=== PATIENT | male | born 1980 | race Caucasian/White ===

== ENCOUNTER 2017-03-12 22:32 | Inpatient (IN) | payer OTHER ==
[~2017-03-12] VITALS: Ht 188 cm; Wt 83.9 kg
[2017-03-13] VITALS (18 sets, daily range): BP systolic 106–136; BP diastolic 56–81; PULSE 70–78; RESP 13–20; TEMP 98.1; Ht 188 cm; Wt 83.9 kg
[2017-03-13] MEDS ORDERED: SOD CHLORIDE 0.9% 1,000 ML IV STA ×2 (00:17→01:21)
[2017-03-13] MEDS ORDERED: morphine 4 MG/ML VIAL IV STA (00:17)
[2017-03-13] MEDS ORDERED: ONDANSETRON 4 MG INJ IV STA (00:17)
--- NOTE | 2017-03-13 00:57 | RADRPT ---
PROCEDURE: CT Abdomen and pelvis without contrast. CLINICAL INDICATION: Abdominal pain. TECHNIQUE: CT scan of the abdomen and pelvis was performed on a multi-detector high-resolution CT scanner. Contiguous axial images were obtained from the lung bases to the ischial tuberosities wit hout intravenous contrast. Coronal and sagittal reformatted images were also obtained. Images were reviewed on the PACS workstation. One or more of the following dose reduction techniques were used: - Automated exposure control. - Adjustment of the mA and/or kV according to patient size. - Use of iterative reconstruction technique. Exam CTD/vol = 10.49 mGy. Total exam DLP = 629.45 mGy-cm. COMPARISON: None. FINDINGS: Evaluation of the lung bases demonstrates no pleural or parenchymal disease. Abdomen: The liver is normal in size. There is no focal mass or dilatation of the biliary tree. T he gallbladder is not distended. The spleen, pancreas and bilateral adrenal glands are within haritha l limits. Bilateral kidneys are normal in size with no contour deforming mass identified. There is no radiopaque renal or ureteral calculus identified. There is no hydronephrosis or hydroureter. T here is no retroperitoneal adenopathy. The abdominal aorta is of normal caliber. There is intestinal malrotation with most of the small bowel within the mid to right abdomen and mos t of the colon within the mid to left abdomen. There is moderate retained stool within the colon. Th ere is no bowel obstruction or free air. A normal appendix is identified. There is no diverticulos is or diverticulitis. There is no ascites. Pelvis: The bladder is unremarkable. The prostate and seminal vesicles are within normal limits. There is no significant pelvic adenopathy or free fluid. Evaluation of the osseous structures demonstrates no suspicious lytic or blastic lesion. There are d efects of bilateral pars particulars of L5 with grade 1 anterolisthesis of L5 on S1 measuring 4 mm i n AP diameter. IMPRESSION: Intestinal malrotation. There is no bowel obstruction. Moderate retained stool within the colon. Bilateral pars defects of L5 with grade 1 anterolisthesis of L5 on S1. .David Daniel MD, MD Date Time Electronically viewed and signed by .David Daniel MD, MD on 03/13/2017 00:57 .T/
[2017-03-13] MEDS ORDERED: HYDROmorphONE 1 MG/ML SYG IV STA ×3 (01:21→04:18)
[2017-03-13 01:33] LABS: BASOPHIL # 0.1 10^3/ul (0.0-0.1); BASOPHILS % 0.6 % (0.0-2.0); EOSINOPHILS % 0.5 % (0.0-7.0); HEMATOCRIT 42.1 % (42.0-52.0); HEMOGLOBIN 14.2 g/dl (14.0-18.0); LYMPHOCYTES % 22.4 % (15.0-51.0); MEAN CORPUSCULAR HGB CONC 33.7 g/dl (32.0-37.0); MEAN CORPUSCULAR VOLUME 86.1 fl (82.0-101.0); MEAN PLATELET VOLUME 12.1 fl (7.4-10.4); MONOCYTE # 0.6 10^3/ul (0.3-0.9); MONOCYTES % 6.9 % (0.0-11.0); NEUTROPHIL # 6.1 10^3/ul (1.6-7.5); NEUTROPHILS % 69.4 % (39.0-77.0); PLATELET COUNT 240 10^3/UL (140-415); RED BLOOD COUNT 4.89 10^6/ul (4.70-6.10); RED CELL DISTRIBUTION WIDTH 12.6 % (11.5-14.5); WHITE BLOOD COUNT 8.8 10^3/ul (4.8-10.8)
[2017-03-13 01:49] LABS: INR 0.92; PROTIME 12.4 Sec (12.2-14.2)
[2017-03-13 01:52] LABS: ALBUMIN 4.8 g/dl (3.3-4.9); ALBUMIN/GLOBULIN RATIO 1.65; BILIRUBIN,INDIRECT 0.2 mg/dl (0-1.1); BILIRUBIN,TOTAL 0.2 mg/dl (0.2-1.3); CREATININE 1.03 mg/dl (0.61-1.24); POTASSIUM 3.7 mmol/L (3.5-5.1); TOTAL PROTEIN 7.7 g/dl (6.1-8.1)
[2017-03-13] MEDS ORDERED: VITA1CAP PO (02:15)
[2017-03-13] MEDS ORDERED: FINA1TAB16 PO (02:15)
[2017-03-13 02:28] LABS: ADD UMIC NO; UR ASCORBIC ACID NEGATIVE (NEGATIVE); UR BILIRUBIN (Dip) NEGATIVE (NEGATIVE); UR BLOOD (Dip) NEGATIVE (NEGATIVE); UR CLARITY CLEAR (CLEAR); UR COLOR YELLOW (YELLOW); UR GLUCOSE (Dip) NEGATIVE (NEGATIVE); UR KETONES (Dip) TRACE mg/dL (NEGATIVE); UR LEUKOCYTE ESTERASE (Dip) NEGATIVE Leu/ul (NEGATIVE); UR NITRITE (Dip) NEGATIVE (NEGATIVE); UR RBC 0 /HPF (0-5); UR SPECIFIC GRAVITY (Dip) 1.016 (1.003-1.030); UR TOTAL PROTEIN (Dip) NEGATIVE (NEGATIVE); UR UROBILINOGEN (Dip) NEGATIVE (NEGATIVE)
--- NOTE | 2017-03-13 02:49 | ERA ---
ER Documentation Chief Complaint Date/Time DATE: 03/13/17 TIME: 02:43 Chief Complaint mid abdominal pain noted, exacerbated by food ingestion. Feels anxious HPI Otherwise healthy 37-year-old man presents with mid to lower abdominal pain and cramping since this afternoon after eating vegetables and quinoa salad. Patient states he has had nausea but no vomiting or diarrhea, he states over the last couple weeks he has had intermittent blood per rectum but denies melena , no fevers or chills, no chest pain or shortness of breath. Patient denies recent antibiotic use, no recent travel, and no past surgical history. ROS All systems reviewed and are negative except as per history of present illness. Medications Home Meds Reported Medications Vitamin B Complex (Vitamin B Complex) 1 Each Capsule, 1 EACH PO, CAP 03/13/17 Finasteride* (Finasteride*) 1 Mg Tablet, 1 MG PO HS, TAB 03/13/17 Allergies Allergies: Coded Allergies: No Known Allergy (Unverified , 03/13/17) PMhx/Soc None FmHx Family History: No diabetes Physical Exam Vitals Vital Signs Date Time Temp Pulse Resp B/P Pulse Ox O2 Delivery O2 Flow Rate FiO2 03/12/17 22:47 97.5 95 22 122/76 100 Physical Exam GENERAL: Well-developed, well-nourished, well-hydrated, in no apparent distress , looks nontoxic in appearance HEENT: Moist mucous membranes, pink conjunctiva, no cervical spine tenderness or step-off deformities, no goiter, no jaundice or icterus, extraocular movements intact without pain. No submandibular induration, and no pharyngeal erythema NEURO: Alert and oriented 3, cranial nerves II through XII intact bilaterally, pupils equal round reactive to light, no focal deficits or facial asymmetry, sensation intact distally Strength 5/5 in upper and lower extremities bilaterally CARDIAC: Regular rate and rhythm, no murmurs rubs or gallops LUNGS: Clear bilaterally no wheezing crackles or stridor ABDOMEN: Rigid, tender to touch with voluntary guarding to the lower abdomen, no psoas sign, no obturator sign. SKIN: Warm and dry to touch, no abrasions, contusions, or hematomas, no lacerations, no ecchymosis, no target lesions, and without ulcers EXTREMITIES: No clubbing cyanosis or edema, calves are bilaterally symmetrical, no Homans sign, no popliteal cord sign. Distal pulses equal and bilateral PSYCH: Normal affect without agitation or irritability Result Diagram: 03/13/17 0045 03/13/17 0045 Results 24 hrs Laboratory Tests Test 03/13/17 00:45 03/13/17 02:06 White Blood Count 8.810^3/ul Red Blood Count 4.8910^6/ul Hemoglobin 14.2g/dl Hematocrit 42.1% Mean Corpuscular Volume 86.1fl Mean Corpuscular Hemoglobin 29.0pg Mean Corpuscular Hemoglobin Concent 33.7g/dl Red Cell Distribution Width 12.6% Platelet Count 72017^3/UL Mean Platelet Volume 12.1fl Neutrophils % 69.4% Lymphocytes % 22.4% Monocytes % 6.9% Eosinophils % 0.5% Basophils % 0.6% Nucleated Red Blood Cells % 0.0/100WBC Neutrophils # 6.110^3/ul Lymphocytes # 2.010^3/ul Monocytes # 0.610^3/ul Eosinophils # 0.010^3/ul Basophils # 0.110^3/ul Nucleated Red Blood Cells # 0.010^3/ul Prothrombin Time 12.4Sec Prothrombin Time Ratio 1.0 INR International Normalized Ratio 0.92 Sodium Level 142mmol/L Potassium Level 3.7mmol/L Chloride Level 101mmol/L Carbon Dioxide Level 22mmol/L Anion Gap 23 Blood Urea Nitrogen 18mg/dl Creatinine 1.03mg/dl Glucose Level 127mg/dl Calcium Level 10.0mg/dl Total Bilirubin 0.2mg/dl Direct Bilirubin 0.00mg/dl Indirect Bilirubin 0.2mg/dl Aspartate Amino Transf (AST/SGOT) 31IU/L Alanine Aminotransferase (ALT/SGPT) 34IU/L Alkaline Phosphatase 58IU/L Total Protein 7.7g/dl Albumin 4.8g/dl Globulin 2.90g/dl Albumin/Globulin Ratio 1.65 Lipase 239U/L Urine Color YELLOW Urine Clarity CLEAR Urine pH 9.0 Urine Specific [place] 1.016 Urine Ketones TRACEmg/dL Urine Nitrite NEGATIVEmg/dL Urine Bilirubin NEGATIVEmg/dL Urine Urobilinogen NEGATIVEmg/dL Urine Leukocyte Esterase NEGATIVELeu/ul Urine Microscopic RBC 0/HPF Urine Microscopic WBC 0/HPF Urine Hemoglobin NEGATIVEmg/dL Urine Glucose NEGATIVEmg/dL Urine Total Protein NEGATIVEmg/dl Current Medications Medications (Trade) Dose Ordered Sig/Ariel Route PRN Reason Start Time Stop Time Status Last Admin Dose Admin Sodium Chloride (NS) 1,000 ml @ 1,000 mls/hr Q1H STAT IV 03/13/17 00:17 03/13/17 01:16 DC 03/13/17 00:24 Morphine Sulfate (morphine) 4 mg ONCE STAT IV 03/13/17 00:17 03/13/17 00:19 DC 03/13/17 00:27 Ondansetron HCl 4 mg 4 mg ONCE STAT IV 03/13/17 00:17 03/13/17 00:19 DC 03/13/17 00:27 Sodium Chloride (NS) 1,000 ml @ 1,000 mls/hr Q1H STAT IV 03/13/17 01:21 03/13/17 02:20 DC 03/13/17 01:27 Hydromorphone HCl (Dilaudid) 1 mg ONCE STAT IV 03/13/17 01:21 03/13/17 01:22 DC 03/13/17 01:27 Hydromorphone HCl (Dilaudid) 1 mg ONCE STAT IV 03/13/17 02:31 03/13/17 02:32 DC 03/13/17 02:40 Procedures/MDM IV line was established patient was placed on life support technician rhythm strip revealed a sinus rhythm at about 90 bpm with upright P and T waves. I administered 1 L normal saline intravenously, morphine 4 mg IV, and Zofran 4 mg IV. For continued discomfort he was given multiple doses of hydromorphone [address] scan of the abdomen and pelvis revealed acute small bowel malrotation, severe without evidence of acute appendicitis or obvious bowel obstruction. Please refer to radiologist dictation for full report. Emergent surgical consultation was obtained with the on-call surgeon, we discussed CT scan findings, patient's abdominal exam and HPI. He recommended admission and close observation, patient n.p.o. after midnight and possible operative intervention in a.m. CBC and electrolytes were normal, liver function tests were normal, coagulation profile was normal. Urinalysis was negative for infection. Patient will be admitted to [facility] for continued medical management and possible surgical intervention. Departure Diagnosis: Primary Impression: Intestinal malrotation Additional Impression: Intractable abdominal pain Condition: CLAIRE Ying MD Mar 13, 2017 02:49
[2017-03-13] MEDS ORDERED: HYDROmorphONE 1 MG/ML SYG IV ONE (04:08)
[2017-03-13] MEDS ORDERED: IOHEXOL 300MG/ML 150 ML BTL ONE (04:25)
[2017-03-13] MEDS ORDERED: SOD CHLORIDE 0.9% 100 ML ONE (04:25)
--- NOTE | 2017-03-13 05:01 | RADRPT ---
PROCEDURE: CT angiogram of the abdomen and pelvis with bilateral lower extremity runoffs with cont rast. CLINICAL INDICATION: Peripheral vascular disease, right lower extremity pain and edema. TECHNIQUE: CT angiogram of the abdomen and pelvis with bilateral lower extremity runoff was perfor med using a multidetector CT scanner. Contiguous axial images were obtained from the lower chest to the feet during the dynamic injection of 120 cc of Omnipaque-300 intravenous contrast. Coronal and sagittal reformatted images were obtained. 3-D reformations were also obtained. Images were reviewe d on a PACS workstation. One or more of the following dose reduction techniques were used: - Automated exposure control. - Adjustment of the mA and/or kV according to patient size. - Use of iterative reconstruction technique. Exan CTD/vol = 7.38 mGy. Total exam DLP = 993.10 mGy-cm. COMPARISON: None. FINDINGS: Evaluation of the lung bases demonstrates mild bibasilar atelectasis. Abdomen: The liver is normal in size. There is no focal mass or dilatation of the biliary tree. T he gallbladder is not distended. The spleen, pancreas and bilateral adrenal glands are within haritha l limits. Bilateral kidneys are normal in size with symmetric enhancement. There is no focal mass, hydronephrosis or hydroureter. There is no retroperitoneal adenopathy. There is intestinal malrotation with most of the small bowel within the mid to right abdomen and mos t of the colon within the mid to left abdomen. There is moderate retained stool within the colon. Th ere is no bowel obstruction or free air. A normal appendix is identified. There is no diverticulosis or diverticulitis. There is no ascites. Pelvis: The bladder is unremarkable. The prostate and seminal vesicles are within normal limits. There is no significant pelvic adenopathy or free fluid. Evaluation of the osseous structures demonstrates no suspicious lytic or blastic lesion. There are d efects of bilateral pars particulars of L5 with grade 1 anterolisthesis of L5 on S1 measuring 4 mm i n AP diameter. The abdominal aorta is of normal course and caliber. The celiac and superior mesenteric arteries ar e within normal limits. 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 The left renal artery is within normal limits. The inferior mesenteric artery is patent. Bilateral common iliacs, external and int ernal iliac arteries are of normal course and caliber. Bilateral common femoral, superficial femora l and popliteal arteries are normal course and caliber. There are normal three-vessel runoffs to th e calves. There is no significant stenosis or occlusion. There is no evidence of aneurysm or disse ction. IMPRESSION: Unremarkable CT angiogram of the abdomen and pelvis with bilateral lower extremity runoffs. Intestinal malrotation. There is no bowel obstruction. Moderate retained stool within the colon. Bilateral pars defects of L5 with grade 1 anterolisthesis of L5 on S1. .David Daniel MD, Date Time Electronically viewed and signed by .David Daniel MD, on 03/13/2017 05:01 .T/
[2017-03-13] MEDS ORDERED: HYDROmorphONE 1 MG/ML SYG IV PRN ×2 (05:30→19:30)
[2017-03-13] MEDS: HYDROmorphONE 2 MG/ML SYG IV PRN ×5 (05:41→14:37)
[2017-03-13] MEDS: ONDANSETRON 4 MG INJ IV PRN ×2 (05:41→10:01)
[2017-03-13] MEDS: D5W-0.45 NACL + KCL 20 MEQ 1,000 ML IV SCH ×3 (05:42→21:05)
[2017-03-13] MEDS ORDERED: PANTOPRAZOLE 40 MG INJ IV SCH (06:00)
[2017-03-13 06:40] LABS: BASOPHILS % 0.4 % (0.0-2.0); EOSINOPHILS % 0.1 % (0.0-7.0); HEMATOCRIT 38.6 % (42.0-52.0); HEMOGLOBIN 12.9 g/dl (14.0-18.0); LYMPHOCYTES # 0.9 10^3/ul (0.8-2.9); LYMPHOCYTES % 9.2 % (15.0-51.0); MEAN CORPUSCULAR HEMOGLOBIN 30.2 pg (29.0-33.0); MEAN CORPUSCULAR HGB CONC 33.4 g/dl (32.0-37.0); MEAN CORPUSCULAR VOLUME 90.4 fl (82.0-101.0); MEAN PLATELET VOLUME 11.9 fl (7.4-10.4); MONOCYTE # 0.4 10^3/ul (0.3-0.9); MONOCYTES % 4.7 % (0.0-11.0); NEUTROPHILS % 85.2 % (39.0-77.0); PLATELET COUNT 190 10^3/UL (140-415); RED BLOOD COUNT 4.27 10^6/ul (4.70-6.10); RED CELL DISTRIBUTION WIDTH 12.5 % (11.5-14.5); WHITE BLOOD COUNT 9.4 10^3/ul (4.8-10.8)
[2017-03-13 07:02] LABS: ALBUMIN 3.9 g/dl (3.3-4.9); ALBUMIN/GLOBULIN RATIO 1.77; BILIRUBIN,INDIRECT 0.2 mg/dl (0-1.1); BILIRUBIN,TOTAL 0.2 mg/dl (0.2-1.3); CALCIUM 8.5 mg/dl (8.4-10.2); CREATININE 0.89 mg/dl (0.61-1.24); POTASSIUM 4.6 mmol/L (3.5-5.1); TOTAL PROTEIN 6.1 g/dl (6.1-8.1)
--- NOTE | 2017-03-13 12:28 | CONS ---
Date/Time of Note Date/Time of Note DATE: 03/13/17 TIME: 12: Assessment/Plan Assessment/Plan Additional Assessment/Plan [facility] INPATIENT CONSULTATION NOTE DATE OF SERVICE: 03/13/2017 PLACE OF SERVICE: [facility], second floor [place] ASSESSMENT AND PLAN: A very-pleasant otherwise healthy 37-year-old gentleman presenting with possible malrotation of his bowel including his colon. His degree of pain and presence of guarding and peritoneal signs mandate surgical exploration despite normal-appearing labs. No evidence of ischemic issues related to clotting and major vessels with CT angiography. No obvious role for gastroenterology to try and reverse this process with endoscopy (I discussed this with 1 of our GI colleagues). I explained my recommendations to the patient and his family that included his partner and another friend, discussed the operation in detail including risks, benefits, and alternatives and answered all of their questions. After careful consideration of all their options, the patient and family appear to understand and agreed to proceed with surgery. With above assessment, I've recommended the followin. Keep n.p.o. 2. Treat symptoms 3. [place] to the operating room for above Thank you very much for having me involved in the care of this very pleasant patient and wonderful family. If you have any questions, please feel free to contact me at [phone]. Nature of presenting problem: High severity Please note that, given the multiple number of diagnoses or management options, the moderate amount and/or complexity of data needed to be reviewed, and I risk of complications and/or morbidity or mortality, this qualifies as high complexity type of decision-making. Disclaimer: Inadvertent spelling and grammatical errors are likely due to EHR/ dictation software use and do not reflect on the quality of delivered patient care. Also, please note that the electronic time recorded on this node does not necessarily reflect the actual time of the visit. Updated clinical summary: A very-pleasant otherwise fairly healthy 37-year-old gentleman presenting with possible malrotation of his bowel including his colon. Comorbidities: 1. Bilateral pars defects of L5 with grade 1 anterolisthesis of L5 on S1 CONSULTATION REQUESTED BY: Nolberto Raymundo MD HISTORY OF PRESENT ILLNESS: The patient is a very pleasant 37-year-old otherwise healthy gentleman presenting with abdominal pain of a few hours duration which appears to be constant in nature, located in a diffuse fashion in the lower pelvic region, exacerbated by movement and not alleviated by any factors other than pain medications. 10 out of 10 in severity without radiation. Associated nausea and one episode of vomiting which was nonbloody. No issues with diarrhea or constipation. Has had on and off GI problems in the past but none this severe. No prior operations. No other complaints. Unknown whether there was any issues during or his childhood (none reported by patient). ALLERGIES: NO KNOWN DRUG ALLERGIES MEDICATIONS Documented in the electronic records and reviewed by me. Please see the electronic records for details, as well as details for inpatient medications which were also reviewed by me. Patient is on finasteride and vitamin B complex. SOCIAL HISTORY: The patient lives with his partner. Patient is an actor.-Tob;- ETOH;-IVDU FAMILY HISTORY: There are no significant medical, surgical or oncologic issues in the family as reported by the patient or reflected in the chart. REVIEW OF SYSTEMS: Other than mentioned above, there were no other pertinent positives or pertinent negatives in an otherwise complete 14 point review of systems. PHYSICAL EXAMINATION GENERAL: The patient appears to be a very pleasant gentleman of non- descent lying in bed, appearing stated age, and otherwise in no acute distress. BMI: 23.7 VITAL SIGNS: AVSS (please also see auto important data if available as well as the electronic records) HEENT: Normocephalic and atraumatic. Extraocular muscles and hearing are grossly intact bilaterally and symmetrically. Sclerae are nonicteric. Oral cavity is clear; oral mucosa appear to be pink and moist. Dentition: fair. NECK: Supple. There is no lymphadenopathy or JVD. There is no submental, submandibular or supraclavicular lymphadenopathy. CHEST: Rises symmetrically with each breath; patient is breathing comfortably. There are no audible wheezes, rales or rhonchi on the gross exam. HEART: Pulse is regular and palpable on the right wrist. Capillary refill is normal. Carotid pulses are palpable bilaterally and symmetrically in the neck. EXTREMITIES: Lower extremities contain no pitting edema around the ankles bilaterally and symmetrically. ABDOMEN: Abdomen is soft, moderate to significantly tender and nondistended. No evidence of ascites, organomegaly, caput medusae, engorged subcutaneous veins , or other abnormalities. There are mild to moderate guarding with mild peritoneal signs. SKIN: Appears to be pink and feels warm to touch. NEUROLOGIC: Awake, alert, and follows commands appropriately. LABORATORY DATA: Essentially all normal (please see electronic medical record system) IMAGING: See electronic chart. Please note that I've personally reviewed all pertinent available images and I agree in general with their overall reported findings. Abdominal and pelvic CT [facility] 03/13/2017 IMPRESSION: Unremarkable CT angiogram of the abdomen and pelvis with bilateral lower extremity runoffs. Intestinal malrotation. There is no bowel obstruction. Moderate retained stool within the colon. Bilateral pars defects of L5 with grade 1 anterolisthesis of L5 on S1. Consultation Date/Type/Reason Admit Date/Time Mar 13, 2017 at 01:50 Social History Smoking Status: Never smoker Exam/Review of Systems Vital Signs Vitals Vital Signs Date Time Temp Pulse Resp B/P Pulse Ox O2 Delivery O2 Flow Rate FiO2 03/13/17 08:00 97.3 83 17 129/81 100 03/13/17 04:30 Room Air Intake and Output 03/12/17 03/12/17 03/13/17 15:00 23:00 07:00 Intake Total 0 ml Balance 0 ml Results Result Diagram: 03/13/17 0600 03/13/17 0600 Results 24 hrs Laboratory Tests Test 03/13/17 00:45 03/13/17 02:06 03/13/17 06:00 White Blood Count 8.8 9.4 Red Blood Count 4.89 4.27 L Hemoglobin 14.2 12.9 L Hematocrit 42.1 38.6 L Mean Corpuscular Volume 86.1 90.4 Mean Corpuscular Hemoglobin 29.0 30.2 Mean Corpuscular Hemoglobin Concent 33.7 33.4 Red Cell Distribution Width 12.6 12.5 Platelet Count 240 190 # Mean Platelet Volume 12.1 H 11.9 H Neutrophils % 69.4 85.2 H Lymphocytes % 22.4 9.2 L Monocytes % 6.9 4.7 Eosinophils % 0.5 0.1 Basophils % 0.6 0.4 Nucleated Red Blood Cells % 0.0 0.0 Neutrophils # 6.1 8.0 H Lymphocytes # 2.0 0.9 Monocytes # 0.6 0.4 Eosinophils # 0.0 0.0 Basophils # 0.1 0.0 Nucleated Red Blood Cells # 0.0 0.0 Prothrombin Time 12.4 Prothrombin Time Ratio 1.0 INR International Normalized Ratio 0.92 Sodium Level 142 142 Potassium Level 3.7 4.6 Chloride Level 101 106 Carbon Dioxide Level 22 23 Anion Gap 23 H 18 H Blood Urea Nitrogen 18 14 Creatinine 1.03 0.89 Glucose Level 127 114 Calcium Level 10.0 8.5 Total Bilirubin 0.2 0.2 Direct Bilirubin 0.00 0.00 Indirect Bilirubin 0.2 0.2 Aspartate Amino Transf (AST/SGOT) 31 26 Alanine Aminotransferase (ALT/SGPT) 34 30 Alkaline Phosphatase 58 42 Total Protein 7.7 6.1 # Albumin 4.8 3.9 Globulin 2.90 2.20 Albumin/Globulin Ratio 1.65 1.77 Lipase 239 Urine Color YELLOW Urine Clarity CLEAR Urine pH 9.0 Urine Specific [place] 1.016 Urine Ketones TRACE A Urine Nitrite NEGATIVE Urine Bilirubin NEGATIVE Urine Urobilinogen NEGATIVE Urine Leukocyte Esterase NEGATIVE Urine Microscopic RBC 0 Urine Microscopic WBC 0 Urine Hemoglobin NEGATIVE Urine Glucose NEGATIVE Urine Total Protein NEGATIVE Lactic Acid Level 0.8 Medications Medications Current Medications Hydromorphone HCl (Dilaudid) 1 mg Q2H PRN IV PAIN; Start 03/13/17 at 05:30 Hydromorphone HCl (Dilaudid) 2 mg Q2H PRN IV PAIN Last administered on 12:20; Admin Dose 2 MG; Start 03/13/17 at 05:30 Ondansetron HCl (Zofran Inj) 4 mg Q4H PRN IV NAUSEA AND/OR VOMITING Last administered on 03/13/17 10:01; Admin Dose 4 MG; Start 03/13/17 at 05:30 Pantoprazole 40 mg 40 mg DAILY@06 IV Last administered on 03/13/17 05:41; Admin Dose 40 MG; Start 03/13/17 at 06:00 Potassium Chloride/Dextrose/ Sod Cl (D5-1/2ns + KCl 20 Meq) 1,000 ml @ 100 mls/ hr Q10H IV Last administered on 03/13/17 05:42; Admin Dose 100 MLS/HR; Start 03/13/17 at 05:30 AIDEN MATA M.D. Mar 13, 2017 12:28
--- NOTE | 2017-03-13 13:19 | HP ---
Date/Time of Note Date/Time of Note DATE: 03/13/17 TIME: 13:16 Assessment/Plan VTE Prophylaxis VTE Prophylaxis Intervention: other Lines/Catheters IV Catheter Type (from Nrs): Peripheral IV Assessment/Plan Chief Complaint/Hosp Course 1) colonic malrotation - pain medication - to have surgical repair Problems: HPI/ROS Admit Date/Time Admit Date/Time Mar 13, 2017 at 01:50 Hx of Present Illness Patient without significant medical history comes in with worsening episodes of abdominal pain. Previously had incidences that lasted 1 day but now the problem is progressively worse and longer lasting. CT shows evidence of colon malrotation. Patient is admitted for pain control and probable surgery for correction. PMH/Family/Social Past Medical History Medical History: no pertinent history Past Surgical History Past Surgical Hx: no surgical history Social History Alcohol Use: occasionally Smoking Status: Never smoker Exam/Review of Systems Vital Signs Vitals Vital Signs Date Time Temp Pulse Resp B/P Pulse Ox O2 Delivery O2 Flow Rate FiO2 03/13/17 08:00 97.3 83 17 129/81 100 03/13/17 04:30 Room Air Intake and Output 03/12/17 03/12/17 03/13/17 15:00 23:00 07:00 Intake Total 0 ml Balance 0 ml Exam Constitutional: well developed Head: atraumatic, normocephalic Neck: supple Respiratory: clear to auscultation Cardiovascular: regular rate and rhythm Gastrointestinal: soft, tender Extremities: normal pulses Labs Result Diagram: 03/13/17 0600 03/13/17 0600 Medications Medications Current Medications Hydromorphone HCl (Dilaudid) 1 mg Q2H PRN IV PAIN; Start 03/13/17 at 05:30 Hydromorphone HCl (Dilaudid) 2 mg Q2H PRN IV PAIN Last administered on 12:20; Admin Dose 2 MG; Start 03/13/17 at 05:30 Ondansetron HCl (Zofran Inj) 4 mg Q4H PRN IV NAUSEA AND/OR VOMITING Last administered on 03/13/17 10:01; Admin Dose 4 MG; Start 03/13/17 at 05:30 Pantoprazole 40 mg 40 mg DAILY@06 IV Last administered on 03/13/17 05:41; Admin Dose 40 MG; Start 03/13/17 at 06:00 Potassium Chloride/Dextrose/ Sod Cl (D5-1/2ns + KCl 20 Meq) 1,000 ml @ 100 mls/ hr Q10H IV Last administered on 03/13/17t 05:42; Admin Dose 100 MLS/HR; Start 03/13/17 at 05:30 CANDIE PARDO Mar 13, 2017 13:19
[2017-03-13] MEDS ORDERED: BUPIVACAINE 0.25%/EPI (SDV) 30 ML INJ ONE (15:40)
[2017-03-13] MEDS ORDERED: SUCCINYLCHOLINE CHLORIDE 100 MG/5 ML SYG IV ONE (15:42)
[2017-03-13] MEDS ORDERED: LIDOCAINE 2% (SDV) 5 ML INJ ONE (15:42)
[2017-03-13] MEDS ORDERED: PROPOFOL 20 ML ONE (15:42)
[2017-03-13] MEDS ORDERED: MIDAZOLAM 1 MG/ML 2 ML INJ ONE (15:43)
[2017-03-13] MEDS ORDERED: FENTAnyl 50 MCG/ML VIAL ONE (15:43)
[2017-03-13] MEDS ORDERED: OXYCODONE/ACETAMINOPHEN (5/325) TAB PO PRN ×2 (16:00)
[2017-03-13] MEDS ORDERED: MEPERIDINE 25 MG INJ IV PRN (16:00)
[2017-03-13] MEDS ORDERED: HYDROmorphONE (0.2 MG/ML) 10ML SYG IV PRN ×2 (16:00)
[2017-03-13] MEDS ORDERED: PROCHLORPERAZINE 10 MG INJ IV PRN (16:00)
[2017-03-13] MEDS ORDERED: DIPHENHYDRAMINE 50 MG INJ IV PRN (16:00)
[2017-03-13] MEDS ORDERED: FENTAnyl 50 MCG/ML VIAL IV PRN (16:00)
[2017-03-13] MEDS ORDERED: ONDANSETRON 4 MG INJ IV PRN (16:00)
[2017-03-13] MEDS ORDERED: DEXAMETHASONE 4 MG/ML 1 ML INJ ONE (16:16)
[2017-03-13] MEDS ORDERED: ONDANSETRON 4 MG INJ ONE (16:16)
[2017-03-13] MEDS ORDERED: ROCURONIUM 50 MG INJ ONE (16:16)
[2017-03-13] MEDS ORDERED: CEFAZOLIN 1 GM INJ ONE (16:16)
[2017-03-13] MEDS ORDERED: ACETAMINOPHEN 1000MG/100ML IV 100 ML ONE (18:23)
[2017-03-13] MEDS ORDERED: KETOROLAC 30 MG INJ ONE (18:24)
[2017-03-13] MEDS ORDERED: SUGAMMADEX SODIUM 200 MG/2 ML VIAL IV ONE (19:00)
--- NOTE | 2017-03-13 19:13 | OPR ---
Date/Time of Note Date/Time of Note DATE: 03/13/17 TIME: 18:57 Operative Report Free Text/Dictation 37 yo M presenting with a distal bowel obstruction and a CT a/p consistent with an intestinal rotation anomaly. I was asked for an intraoperative consult by Dr. Tejada. 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 Operation Performed Laparoscopic Mesa's procedure (Please see Dr. Tejada's operative report for portion of his operation.) Surgeon: MC SAWYER MD Anesthesia: general Anesthesiologist: RACIEL DIA MD Estimated Blood Loss: minimal Specimens Appendix Complications: None Pt Condition Post Procedure: stable Indications 37 yo M with a lifelong history of abdominal pain and intermittent episodes of vomiting. Who presented with severe abdominal pain that was evaluated by Dr. Tejada who order a CT a/p that showed fecalized small bowel and dilated colon in the left lower quadrants consistent with a bowel obstruction and intestinal rotational anomaly. Dr. Tejada took him to the operating room where I was consulted as a cosurgeon to perform a laparoscopic Mesa's procedure. Operative\Procedure Findings Dr. del Tejada asked for intraoperative consult. Dr. Tejada had to gain access to the abdominal cavity and he was a doing a diagnostic laparoscopy. During the case and we began to explore the abdomen and quickly noticed that his duodenum did not cross midline and had a evidence of intestinal rotational anomaly. We ran the small bowel and noted that the distal small bowel to the terminal ileum had was full of stool and the cecum itself was very dilated all the way up to the descending colon that made a twist causing a distal obstruction. We started with kocherization the duodenum laparoscopically Dr. Tejada will dictate this portion of the procedure. I assisted and taking the Darius's band from the ascending colon towards the mesentery where the obstruction was localized. I used the LigaSure to take down the Darius's bands and perform a full mobilization of the right colon and untwisted the portion that was causing the obstruction. We then proceeded and perform a laparoscopic appendectomy using the LigaSure to take the mesoappendix all the way onto the base of the appendix and taking a endoscopic stapler 45 load across the base of the appendix. The appendix was passed out as a specimen. We then ran the small bowel starting from the duodenum keeping the duodenum nice and straight and moving the small bowel towards the right side of the abdomen watching the mesentery to make sure that it was broad. There were Darius's bands in the duodenum and jejunum junction that were taken down as well. The colon was then placed on the left side of the abdomen making sure that the mesentery was broad. At this point I scrubbed out and Dr. Garfield Dempsey will dictate the portion of the procedure to completion. MC SAWYER MD Mar 13, 2017 19:12
[2017-03-13] MEDS ORDERED: DOCUSATE SODIUM 100 MG CAP PO PRN (19:30)
[2017-03-13] MEDS ORDERED: HYDROCODONE/APAP (5/325) TAB PO PRN ×2 (19:30)
[2017-03-13] MEDS ORDERED: NA PHOSPHATE/BIPHOS 133 ML ENEMA PR PRN (19:30)
[2017-03-13] MEDS ORDERED: BISACODYL 10 MG SUPP PR PRN (19:30)
[2017-03-13] MEDS ORDERED: oxyCODONE 5 MG TAB PO PRN ×2 (20:00)
--- NOTE | 2017-03-13 21:44 | OPR ---
Date/Time of Note Date/Time of Note DATE: 03/13/17 TIME: 21:42 Operative Report Procedure Date: Mar 13, 2017 Surgeon: TACO SAWYER MD Anesthesia: general Anesthesiologist: RACIEL SANCHEZ MD Estimated Blood Loss: minimal Complications: None Pt Condition Post Procedure: stable Operative\Procedure Findings [facility] INPATIENT OPERATIVE NOTE PLACE OF SERVICE: [facility] DATE OF SURGERY: 03/13/2017 PREOPERATIVE DIAGNOSIS: 1. 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 Bilateral pars defects of L5 with grade 1 anterolisthesis of L5 on S1 POSTOPERATIVE DIAGNOSIS: 1. Malrotation with fecalization of small intestine (terminal ileum) 2. Bilateral pars defects of L5 with grade 1 anterolisthesis of L5 on S1 OPERATION: Laparoscopic exploration with kocherization of duodenum as part of Darius's procedure (please see Dr. Sawyer's operative report for his portion of the operation) SURGEON: Julio Mata M.D. CO-SURGEON: Taco Sawyer M.D. PETROLEUM ENGINEERING TEACHER: None Please note that Dr. Sawyer was present for the entire duration of the operation and was instrumental in assisting with the most critical portions of my portion of the operation and in performance of his portion of the operation. ANESTHESIA: General endotracheal tube anesthesia ANESTHESIOLOGIST: Fatoumata Sanchez M.D. BRIEF SUMMARY: An otherwise uncomplicated but somewhat challenging laparoscopic Pyatt's procedure was performed with findings of malrotation. Updated clinical summary: A very-pleasant otherwise fairly healthy 37-year-old gentleman presenting with possible malrotation of his bowel including his colon. Comorbidities: 1. Bilateral pars defects of L5 with grade 1 anterolisthesis of L5 on S1 BRIEF HISTORY: The patient is a very-pleasant otherwise healthy 37-year-old gentleman presenting with possible malrotation of his bowel including his colon. His degree of pain and presence of guarding and peritoneal signs mandate surgical exploration despite normal-appearing labs. No evidence of ischemic issues related to clotting and major vessels with CT angiography. No obvious role for gastroenterology to try and reverse this process with endoscopy (I discussed this with 1 of our GI colleagues). I explained my recommendations to the patient and his family that included his partner and another friend, discussed the operation in detail including risks, benefits, and alternatives and answered all of their questions. After careful consideration of all their options, the patient and family appear to understand and agreed to proceed with surgery. For a detailed report of my consultation with patient and family, please refer to my separate consultation note. STATEMENT OF THE INFORMED CONSENT: The patient and family appeared to understand the risks of the operation to include, but not be limited to risk of postoperative pain and scar tissue, possible infection or bleeding requiring other interventions such as opening the wound, placement of drainage catheters, or other operative interventions; possible injury to surrounding to structures including bowel, bladder, bile duct, or blood vessels, or solid organs such as liver, kidney, or pancreas requiring other interventions or procedures; possible leakage of bowel from anastomotic sites or suture lines causing significant increase in morbidity and mortality and requiring multiple interventions including but not limited to, placement of drainage catheters, imaging studies, as well as operative interventions; possible other source of sepsis such as urinary tract infections or pneumonias, or other sources of potentially life threatening problems such as deep venous thrombus formation causing pulmonary embolism, myocardial arrhythmias and infarctions, and even . After careful consideration of all their options, the patient and family appeared to understand and wished to proceed with surgery. DESCRIPTION OF PROCEDURE: After obtaining informed consent, the patient was brought into the operating room and was placed in a normal supine position, where successful general endotracheal tube anesthesia was performed. Intravenous access was already in place and intravenous antimicrobials had been appropriately chosen and dosed prior to the operation. The patient's abdominal skin was prepped and draped from the nipple line down to the level of the upper thighs in the usual sterile fashion. We then called a surgical time-out where the patient's identification, date of , nature of the operation, allergies , presence of intravenous antimicrobials, presence of needed equipment, and any other concerns were reviewed and agreed upon by all members of the operating room team. We then started the operation by placing a 5 mm skin incision in the left lower quadrant and then introduced a 5 mm [employer] trocar into the peritoneal space, visualizing all the layers of the abdominal wall as we entered. Note that there was no indication of any injury to underlying structures with our entry into the peritoneal space. There was clear ascitic type fluid in the trocar but no blood or fecal contents. We insufflated the abdominal cavity to a maximum pressure of 15 mmHg and again inspected the area of insertion and ensured no obvious injury to underlying structures prior to inspecting the abdominal cavity and showing no obvious pus, bowel contents, or other abnormal features. The small bowel appeared to be in the right upper quadrant and the colon appeared to be in the left lower quadrant consistent with malrotation. We therefore injected the future sites of our other trocars with 0.25% Marcaine with epinephrine and placed a 5 mm [employer] trocar into the midline suprapubic area, taking care not to injure the bladder. We also placed a 12 mm trocar in the umbilical midline area, all under direct visualization. We also placed a 5 mm trocar in the right upper quadrant in similar fashion. With our instruments in place, we had excellent visualization and access to the right lower quadrant. Please note that at this point, Dr. Sawyer was in the room at my request and scrubbed into the operation. For detailed report of the operation, please refer to his separate dictated note. My portion of the operation was mainly to assist him in the Pyatt's procedure but also to perform the kocherization of the duodenum which he assisted me for. This was due to the fact that the patient was an adult and I was his primary surgeon as well as use of my hepatobiliary skills in this operation. I certainly appreciate Dr. Sawyer's expertise in malrotation procedures that he frequently performs on 's in newborns. We identified the stomach and carefully followed the course into the duodenum. I was then able to perform complete kocherization of the duodenum with excellent assistance from Dr. Sawyer. I then proceeded to assist through the rest of the case with Dr. Sawyer as outlined is separate operative note. At the end of the operation, Dr. Sawyer scrubbed out and I closed as follows. We ensured adequate hemostasis and bile stasis, removed all our equipment including the pneumoperitoneum from the abdominal cavity prior to closing the infraumbilical fascia with 1 [id number] 0 Vicryl suture on a UR-6 needle, washing the wounds with copious amounts of normal saline, injecting the initial insertion point of the trocar with 0.25% Marcaine with epinephrine, and then closing the skin using interrupted 4-0 Monocryl sutures. Light dressing was then applied. At the end of the operation, both the sponge count and needle count were reportedly correct x2. The patient tolerated the procedure without any reported complications. ESTIMATED BLOOD LOSS: Less than 10 mL. BLOOD OR BLOOD PRODUCT TRANSFUSIONS: None to my knowledge. SPECIMENS: 1. Appendix COMPLICATIONS: None. DISPOSITION: Recovery area. Disclaimer: Inadvertent spelling and grammatical errors are likely due to EHR/ dictation software use and do not reflect on the quality of delivered patient care. JULIO MATA M.D. Mar 13, 2017 21:44
[2017-03-14] MEDS: ONDANSETRON 4 MG INJ IV PRN ×3 (02:29→14:00)
[2017-03-14] MEDS: HYDROmorphONE 1 MG/ML SYG IV PRN ×7 (02:29→21:45)
[2017-03-14 02:49] VITALS: BP 116/64; RESP 16
[2017-03-14] MEDS: D5W-0.45 NACL + KCL 20 MEQ 1,000 ML IV SCH ×2 (06:40→17:00)
[2017-03-14 08:00] VITALS: BP 123/60; RESP 18
[2017-03-14] MEDS: ENOXAPARIN 40 MG/0.4 ML SYG SC SCH (08:22)
[2017-03-14] MEDS: FAMOTIDINE 20 MG INJ IV SCH (08:22)
[2017-03-14 14:00] VITALS: BP 120/75; RESP 20
--- NOTE | 2017-03-14 14:05 | PN ---
Date/Time of Note Date/Time of Note DATE: 03/14/17 TIME: 14:04 Assessment/Plan VTE Prophylaxis VTE Prophylaxis Intervention: other Lines/Catheters IV Catheter Type (from Nrsg): Peripheral IV Assessment/Plan Chief Complaint/Hosp Course 1) colonic malrotation - pain medication - to have surgical repair Problems: Subjective 24 Hr Interval Summary Free Text/Dictation Patient is doing well, s/p surgical repair of intestinal malrotation Exam/Review of Systems Vital Signs Vitals Vital Signs Date Time Temp Pulse Resp B/P Pulse Ox O2 Delivery O2 Flow Rate FiO2 03/14/17 08:00 98.9 80 18 123/60 96 03/13/17 20:20 Room Air 03/13/17 19:35 6.0 Intake and Output 03/13/17 03/13/17 03/14/17 15:00 23:00 07:00 Intake Total 1000 ml 1550 ml 1240 ml Output Total 10 ml 1620 ml Balance 1000 ml 1540 ml -380 ml Exam Constitutional: well developed Head: atraumatic, normocephalic Neck: supple Respiratory: clear to auscultation Cardiovascular: regular rate and rhythm Gastrointestinal: non-tender, soft Results Result Diagram: 03/13/17 0600 03/13/17 0600 Medications Medications Current Medications Ondansetron HCl 4 mg 4 mg Q4H PRN IV NAUSEA AND/OR VOMITING Last administered on 03/14/17 14:00; Admin Dose 4 MG; Start 03/13/17 at 05:30 Potassium Chloride/Dextrose/ Sod Cl (D5-1/2ns + KCl 20 Meq) 1,000 ml @ 100 mls/ hr Q10H IV Last administered on 03/14/17 06:40; Admin Dose 100 MLS/HR; Start 03/13/17 at 05:30 Acetaminophen/ Hydrocodone Bitart ([place] (5/325)) 1 tab Q4H PRN PO PAIN LEVEL 4 -7; Start 03/13/17 at 19:30 Acetaminophen/ Hydrocodone Bitart ([place] (5/325)) 2 tab Q4H PRN PO PAIN LEVEL 7 -10; Start 03/13/17 at 19:30 Hydromorphone HCl (Dilaudid) 0.5 mg Q2H PRN IV PAIN; Start 03/13/17 at 19:30 Hydromorphone HCl (Dilaudid) 1 mg Q2H PRN IV PAIN Last administered on 13:55; Admin Dose 1 MG; Start 03/13/17 at 19:30 Docusate Sodium (Colace) 100 mg BID PRN PO CONSTIPATION; Start 03/13/17 at 19: 30 Bisacodyl (Dulcolax Supp) 10 mg BID PRN [place] CONSTIPATION; Start 03/13/17 at 19: 30 Sodium Biphosphate/ Sodium Phosphate (Fleet Enema) 133 ml BID PRN [place] CONSTIPATION; Start 03/13/17 at 19:30 Famotidine (Pepcid Iv) 20 mg DAILY IV Last administered on 03/14/17 08:22; Admin Dose 20 MG; Start 03/14/17 at 09:00 Enoxaparin Sodium (Lovenox) 40 mg DAILY SC Last administered on 03/14/17 08:22 ; Admin Dose 40 MG; Start 03/14/17 at 09:00 Oxycodone HCl (Roxicodone) 5 mg ONCE PRN PO PAIN LEVEL 1-5; Start 03/13/17 at 20:00; Stop 03/14/17 at 19:59 Oxycodone HCl (Roxicodone) 10 mg ONCE PRN PO PAIN LEVEL 4-7; Start 03/13/17 at 20:00; Stop 03/14/17 at 19:59 CANDIE PARDO Mar 14, 2017 14:05
--- NOTE | 2017-03-14 14:26 | PN ---
Date/Time of Note Date/Time of Note DATE: 03/14/17 TIME: 14:26 Assessment/Plan Lines/Catheters IV Catheter Type (from Nrsg): Peripheral IV Assessment/Plan Assessment/Plan [facility] Progress Note Date of Service: 03/14/2017 Place of service: [facility] second floor [facility] Today's Assessment & Plan: Overall stable and doing well. No indication for major postoperative complications or surgical site infections. Patient's original pain seems to have resolved. No indication for acute surgical intervention. Awaiting further return of bowel functions. With above assessment, I've recommended the following for today: 1. Keep in-house 2. Increase activity 3. Increase incentive spirometry 4. Regular diet 5. Labs in a.m. 6. Saline lock IV 7. Oral conversion of medications 8. Possible discharge planning for tomorrow if stable 9. Discharge instructions: "Please call [phone] if any of fever, nausea, vomiting, discharge from wound, wound redness, increase or sudden pain, blood in stool or vomit, or any other unusual signs or symptoms. Also, please call the same number in a few days to schedule an appointment for your follow up visit. Patient may remove dressings tomorrow. Showers OK starting tomorrow. No swimming , hot tub or bath for 2 weeks. No lifting more than 25 lbs for 8 weeks." Thank you again for your great care of this very pleasant patient and wonderful family. If there are any questions, please feel free to call me at [phone]. Nature of presenting problem: High severity Please note that, given the extensive number of diagnoses or management options , the extensive amount and/or complexity of data needed to be reviewed, and high risk of complications and/or morbidity or mortality, this qualifies as high complexity type of decision-making. Disclaimer: Inadvertent spelling and grammatical errors are likely due to EHR/ dictation software use and do not reflect on the quality of delivered patient care. Also, please note that the electronic time recorded on this node does not necessarily reflect the actual time of the visit. Updated clinical summary: A very-pleasant otherwise fairly healthy 37-year-old gentleman presenting with possible malrotation of his bowel including his colon. Comorbidities: 1. Malrotation with fecalization of small intestine (terminal ileum); s/p laparoscopic exploration with kocherization of duodenum as part of [place]'s procedure [facility] 03/13/2017 2. Bilateral pars defects of L5 with grade 1 anterolisthesis of L5 on S1 Subjective: No major events or complaints; no major abd pain and under control with medications; no n/v/d; no sob or cp; - flatus; - BM; + activity Objective: Vitals: See below I's & O's: See below Exam: GENERAL: On exam, the patient was lying in bed and appeared to be comfortable and in no acute distress. ABDOMEN: Soft, minimally tender around incisions consistent with expected findings and nondistended. Incision dressings are clean, dry and intact without any evidence of obvious underlying erythema, edema, discharge, or hernia. There are no peritoneal signs or guarding. SKIN: Skin appears to be pink and feels warm to touch. NEUROLOGIC: Patient is awake, alert, and follows commands appropriately. Labs: See below Exam/Review of Systems Vital Signs Vitals Vital Signs Date Time Temp Pulse Resp B/P Pulse Ox O2 Delivery O2 Flow Rate FiO2 03/14/17 08:00 98.9 80 18 123/60 96 03/13/17 20:20 Room Air 03/13/17 19:35 6.0 Intake and Output 03/13/17 03/13/17 03/14/17 14:59 22:59 06:59 Intake Total 2550 ml 1240 ml Output Total 10 ml 1620 ml Balance 2540 ml -380 ml Results Result Diagram: 03/13/17 0600 03/13/17 0600 AIDEN MATA M.D. Mar 14, 2017 14:26
[2017-03-14 21:26] VITALS: BP 121/62; RESP 18
[2017-03-15] MEDS: HYDROmorphONE 1 MG/ML SYG IV PRN (02:09)
[2017-03-15 03:09] VITALS: BP 117/63; RESP 16
[2017-03-15] MEDS: D5W-0.45 NACL + KCL 20 MEQ 1,000 ML IV SCH (03:34)
[2017-03-15 08:00] VITALS: BP 127/73; RESP 18
[2017-03-15] MEDS: ENOXAPARIN 40 MG/0.4 ML SYG SC SCH (08:19)
[2017-03-15] MEDS: FAMOTIDINE 20 MG INJ IV SCH (08:20)
--- NOTE | 2017-03-15 11:45 | PN ---
Date/Time of Note Date/Time of Note DATE: 03/15/17 TIME: 11:44 Assessment/Plan VTE Prophylaxis VTE Prophylaxis Intervention: other Lines/Catheters IV Catheter Type (from Nrsg): Peripheral IV Assessment/Plan Chief Complaint/Hosp Course 1) colonic malrotation - pain medication - to have surgical repair Problems: Subjective 24 Hr Interval Summary Free Text/Dictation Patient doing ok but awaiting bowel movement prior to discharge Exam/Review of Systems Vital Signs Vitals Vital Signs Date Time Temp Pulse Resp B/P Pulse Ox O2 Delivery O2 Flow Rate FiO2 03/15/17 08:00 97.8 72 18 127/73 96 03/13/17 20:20 Room Air 03/13/17 19:35 6.0 Intake and Output 03/14/17 03/14/17 03/15/17 15:00 23:00 07:00 Intake Total 500 ml 1950 ml Output Total 1250 ml Balance 500 ml 700 ml Exam Constitutional: well developed Head: atraumatic, normocephalic Neck: supple Respiratory: clear to auscultation Cardiovascular: regular rate and rhythm Extremities: normal pulses Results Result Diagram: 03/13/17 0600 03/13/17 0600 Medications Medications Current Medications Ondansetron HCl 4 mg 4 mg Q4H PRN IV NAUSEA AND/OR VOMITING Last administered on 03/14/17 14:00; Admin Dose 4 MG; Start 03/13/17 at 05:30 Potassium Chloride/Dextrose/ Sod Cl (D5-1/2ns + KCl 20 Meq) 1,000 ml @ 100 mls/ hr Q10H IV Last administered on 03/15/17 03:34; Admin Dose 100 MLS/HR; Start 03/13/17 at 05:30 Acetaminophen/ Hydrocodone Bitart ([place] (5/325)) 1 tab Q4H PRN PO PAIN LEVEL 4 -7; Start 03/13/17 at 19:30 Acetaminophen/ Hydrocodone Bitart ([place] (5/325)) 2 tab Q4H PRN PO PAIN LEVEL 7 -10 Last administered on 03/15/17 09:10; Admin Dose 2 TAB; Start 03/13/17 at 19 :30 Hydromorphone HCl (Dilaudid) 0.5 mg Q2H PRN IV PAIN; Start 03/13/17 at 19:30 Hydromorphone HCl (Dilaudid) 1 mg Q2H PRN IV PAIN Last administered on 02:09; Admin Dose 1 MG; Start 03/13/17 at 19:30 Docusate Sodium (Colace) 100 mg BID PRN PO CONSTIPATION Last administered on 08:20; Admin Dose 100 MG; Start 03/13/17 at 19:30 Bisacodyl (Dulcolax Supp) 10 mg BID PRN [place] CONSTIPATION; Start 03/13/17 at 19: 30 Sodium Biphosphate/ Sodium Phosphate (Fleet Enema) 133 ml BID PRN [place] CONSTIPATION; Start 03/13/17 at 19:30 Famotidine (Pepcid Iv) 20 mg DAILY IV Last administered on 03/15/17 08:20; Admin Dose 20 MG; Start 03/14/17 at 09:00 Enoxaparin Sodium (Lovenox) 40 mg DAILY SC Last administered on 03/15/17 08:19 ; Admin Dose 40 MG; Start 03/14/17 at 09:00 CANDIE PARDO Mar 15, 2017 11:45
--- NOTE | 2017-03-15 13:33 | PN ---
Date/Time of Note Date/Time of Note DATE: 03/15/17 TIME: 13:32 Assessment/Plan Lines/Catheters IV Catheter Type (from Nrsg): Peripheral IV Assessment/Plan Assessment/Plan [facility] Progress Note Date of Service: 03/15/2017 Place of service: [facility] second floor [facility] Today's Assessment & Plan: Overall stable and doing well. No indication for major postoperative complications or surgical site infections. Patient's original pain seems to have resolved. No indication for acute surgical intervention. Awaiting further return of bowel functions. With above assessment, I've recommended the following for today: 1. Aggressive bowel regimen 2. Increase activity 3. Increase incentive spirometry 4. Regular diet 5. Saline lock IV 6. Discharge home once patient had a bowel movement 7. Discharge instructions: "Please call [phone] if any of fever, nausea, vomiting, discharge from wound, wound redness, increase or sudden pain, blood in stool or vomit, or any other unusual signs or symptoms. Also, please call the same number in a few days to schedule an appointment for your follow up visit. Patient may remove dressings tomorrow. Showers OK starting tomorrow. No swimming , hot tub or bath for 2 weeks. No lifting more than 25 lbs for 8 weeks." Thank you again for your great care of this very pleasant patient and wonderful family. If there are any questions, please feel free to call me at [phone]. Nature of presenting problem: High severity Please note that, given the extensive number of diagnoses or management options , the extensive amount and/or complexity of data needed to be reviewed, and high risk of complications and/or morbidity or mortality, this qualifies as high complexity type of decision-making. Disclaimer: Inadvertent spelling and grammatical errors are likely due to EHR/ dictation software use and do not reflect on the quality of delivered patient care. Also, please note that the electronic time recorded on this node does not necessarily reflect the actual time of the visit. Updated clinical summary: A very-pleasant otherwise fairly healthy 37-year-old gentleman presenting with possible malrotation of his bowel including his colon. Comorbidities: 1. Malrotation with fecalization of small intestine (terminal ileum); s/p laparoscopic exploration with kocherization of duodenum as part of [place]'s procedure [facility] 03/13/2017 2. Bilateral pars defects of L5 with grade 1 anterolisthesis of L5 on S1 Subjective: No major events or complaints; no major abd pain and under control with medications; no n/v/d; no sob or cp; + flatus; - BM; + activity Objective: Vitals: See below I's & O's: See below Exam: GENERAL: On exam, the patient was lying in bed and appeared to be comfortable and in no acute distress. ABDOMEN: Soft, minimally tender around incisions consistent with expected findings and nondistended. Incision dressings DC'd and incisions are clean, dry and intact without any evidence of obvious erythema, edema, discharge, or hernia. There are no peritoneal signs or guarding. SKIN: Skin appears to be pink and feels warm to touch. NEUROLOGIC: Patient is awake, alert, and follows commands appropriately. Labs: See below Exam/Review of Systems Vital Signs Vitals Vital Signs Date Time Temp Pulse Resp B/P Pulse Ox O2 Delivery O2 Flow Rate FiO2 03/15/17 08:00 97.8 72 18 127/73 96 03/13/17 20:20 Room Air 03/13/17 19:35 6.0 Intake and Output 03/14/17 03/14/17 03/15/17 15:00 23:00 07:00 Intake Total 500 ml 1950 ml Output Total 1250 ml Balance 500 ml 700 ml Results Result Diagram: 03/13/17 0600 03/13/17 0600 AIDEN MATA M.D. Mar 15, 2017 13:33
[2017-03-15] MEDS ORDERED: FAMOTIDINE 20 MG TAB PO SCH (21:00)
== END 2017-03-15 15:47 | disposition home or self-care (01) | DRG 336 ==
LOC: E/R 22:32 → PP2 03-13 01:50
PROVIDERS: ADMIT Internal Medicine; ATTEND Internal Medicine
PROC: 0DN94ZZ Release Duodenum, Percutaneous Endoscopic Approach (ICD-10-PCS; 2017-03-13)
PROC: 0DTJ4ZZ Resection of Appendix, Percutaneous Endoscopic Approach (ICD-10-PCS; 2017-03-13)
PROC: 0DSK4ZZ Reposition Ascending Colon, Percutaneous Endoscopic Approach (ICD-10-PCS; principal; 2017-03-13 15:00)
DX: K56.2 Volvulus (principal); Q43.3 Congenital malformations of intestinal fixation; K56.41 Fecal impaction
CPT/HCPCS: 36415; 74176; 75635; 80053; 81003; 83605; 83690; 85025; 85610; 87081; 88304; 96374; 96375; 96376; C9113; J0131; J0690; J1100; J1170; J1650; J1885; J2250; J2270; J2405; J3010; J3480; J7030; J7999; Q9967

== ENCOUNTER 2017-03-24 11:45 | Inpatient (IN) | payer OTHER ==
[~2017-03-24] VITALS: Ht 188 cm; Wt 75.0 kg
[~2017-03-24 11:45] MED LIST: FINA1TAB16 PO; VITA1CAP PO
[2017-03-24 11:50] VITALS: Ht 188 cm; Wt 75.0 kg
[2017-03-24] MEDS ORDERED: SOD CHLORIDE 0.9% 1,000 ML IV STA ×2 (12:25→14:09)
[2017-03-24] MEDS ORDERED: ONDANSETRON 4 MG INJ IV STA ×2 (12:25→13:09)
[2017-03-24] MEDS ORDERED: FAMOTIDINE 20 MG INJ IV STA (12:25)
[2017-03-24 12:57] LABS: BASOPHILS % 0.4 % (0.0-2.0); EOSINOPHILS # 0.1 10^3/ul (0.0-0.5); EOSINOPHILS % 0.5 % (0.0-7.0); HEMATOCRIT 45.8 % (42.0-52.0); HEMOGLOBIN 15.3 g/dl (14.0-18.0); LYMPHOCYTES # 1.4 10^3/ul (0.8-2.9); LYMPHOCYTES % 15.2 % (15.0-51.0); MEAN CORPUSCULAR HEMOGLOBIN 29.2 pg (29.0-33.0); MEAN CORPUSCULAR HGB CONC 33.4 g/dl (32.0-37.0); MEAN CORPUSCULAR VOLUME 87.4 fl (82.0-101.0); MEAN PLATELET VOLUME 12.1 fl (7.4-10.4); MONOCYTE # 0.5 10^3/ul (0.3-0.9); MONOCYTES % 5.1 % (0.0-11.0); NEUTROPHIL # 7.3 10^3/ul (1.6-7.5); NEUTROPHILS % 78.5 % (39.0-77.0); PLATELET COUNT 263 10^3/UL (140-415); RED BLOOD COUNT 5.24 10^6/ul (4.70-6.10); WHITE BLOOD COUNT 9.3 10^3/ul (4.8-10.8)
[2017-03-24] MEDS ORDERED: FINA1TAB16 PO (13:26)
[2017-03-24 13:27] LABS: ALBUMIN 5.1 g/dl (3.3-4.9); ALBUMIN/GLOBULIN RATIO 1.88; BILIRUBIN,INDIRECT 0.6 mg/dl (0-1.1); BILIRUBIN,TOTAL 0.6 mg/dl (0.2-1.3); CALCIUM 10.4 mg/dl (8.4-10.2); CREATININE 1.12 mg/dl (0.61-1.24); POTASSIUM 3.6 mmol/L (3.5-5.1); TOTAL PROTEIN 7.8 g/dl (6.1-8.1)
[2017-03-24] MEDS ORDERED: HYDR-906 PO (13:27)
--- NOTE | 2017-03-24 14:01 | ERA ---
ER Documentation Chief Complaint Date/Time DATE: 03/24/17 TIME: 13:55 Chief Complaint surgery on intestine x 2 weeks, bloating, vomit epigastric pain x 3 days HPI This is a 37-year-old male with a past medical history of a recent abdominal surgery who is presenting with epigastric bloating, burning sharp pains with nausea and vomiting, exacerbated by eating for the last 3 days. After vomiting , the patient's symptoms resolve. However, he does feel quite hungry in between episodes. His symptoms recur every time he eats. The patient had an abdominal surgery approximately 10 days ago. 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 During this surgery, he had his appendix removed. It was not infected, but there is concern of possible complications in the future given his reversed anatomy. For 6-7 days postop, he had actually felt quite well. However, starting Friday his symptoms started to develop. The patient has had a significant decrease in his appetite since then. He has not felt sick otherwise. He denies any fever or chills. He denies any chest pain or trouble breathing. He has had no changes to urination. He feels like he has had decreased bowel movements, but they are normal in quality. He has not noticed any bloody or dark or tarry stools. He has had no diarrhea. ROS All systems reviewed and are negative except as per history of present illness. Medications Home Meds Reported Medications Hydrocodone/Acetaminophen ([place] 5-325 Tablet) 1 Each Tablet, 1 EACH PO DAILY Y for SEVERE PAIN LEVEL 7-10, TAB 03/24/17 Finasteride* (Finasteride*) 1 Mg Tablet, 1 MG PO HS, TAB 03/24/17 Discontinued Reported Medications Vitamin B Complex (Vitamin B Complex) 1 Each Capsule, 1 EACH PO, CAP 03/13/17 Finasteride* (Finasteride*) 1 Mg Tablet, 1 MG PO HS, TAB 03/13/17 Allergies Allergies: Coded Allergies: No Known Allergy (Unverified , 03/24/17) PMhx/Soc History of Surgery: Yes (REVERSED INTESTINE/COLON AND APPENDECTOMY) Anesthesia Reaction: No Hx Neurological Disorder: No Hx Respiratory Disorders: No Hx Cardiac Disorders: No Hx Psychiatric Problems: No Hx Miscellaneous Medical Probl: No Hx Alcohol Use: Yes (SOMETIMES) Hx Substance Use: No Hx Tobacco Use: No Smoking Status: Never smoker FmHx Family History: No coronary disease, No diabetes Physical Exam Vitals Vital Signs Date Time Temp Pulse Resp B/P Pulse Ox O2 Delivery O2 Flow Rate FiO2 03/24/17 14:16 98.4 70 130/75 98 Room Air 03/24/17 13:04 98.6 76 12 115/77 100 Room Air 03/24/17 11:50 98.4 99 17 134/74 100 Physical Exam Const: No apparent distress Head: Atraumatic Eyes: Normal Conjunctiva ENT: Normal External Ears, Nose and Mouth. Neck: Full range of motion..~ No meningismus. Resp: Clear to auscultation bilaterally Cardio: Regular rate and rhythm, no murmurs Abd: Soft, mild epigastric tenderness, non distended. Normal bowel sounds Skin: No petechiae or rashes Back: No midline or flank tenderness Ext: No cyanosis, or edema Neur: Awake and alert Psych: Normal Mood and Affect Result Diagram: 03/24/17 1240 03/24/17 1240 Results 24 hrs Laboratory Tests Test 03/24/17 12:40 White Blood Count 9.310^3/ul Red Blood Count 5.2410^6/ul Hemoglobin 15.3g/dl Hematocrit 45.8% Mean Corpuscular Volume 87.4fl Mean Corpuscular Hemoglobin 29.2pg Mean Corpuscular Hemoglobin Concent 33.4g/dl Red Cell Distribution Width 12.0% Platelet Count 22857^3/UL Mean Platelet Volume 12.1fl Neutrophils % 78.5% Lymphocytes % 15.2% Monocytes % 5.1% Eosinophils % 0.5% Basophils % 0.4% Nucleated Red Blood Cells % 0.0/100WBC Neutrophils # 7.310^3/ul Lymphocytes # 1.410^3/ul Monocytes # 0.510^3/ul Eosinophils # 0.110^3/ul Basophils # 0.010^3/ul Nucleated Red Blood Cells # 0.010^3/ul Sodium Level 145mmol/L Potassium Level 3.6mmol/L Chloride Level 96mmol/L Carbon Dioxide Level 30mmol/L Anion Gap 23 Blood Urea Nitrogen 20mg/dl Creatinine 1.12mg/dl Glucose Level 105mg/dl Lactic Acid Level 1.7mmol/L Calcium Level 10.4mg/dl Total Bilirubin 0.6mg/dl Direct Bilirubin 0.00mg/dl Indirect Bilirubin 0.6mg/dl Aspartate Amino Transf (AST/SGOT) 23IU/L Alanine Aminotransferase (ALT/SGPT) 39IU/L Alkaline Phosphatase 64IU/L Total Protein 7.8g/dl Albumin 5.1g/dl Globulin 2.70g/dl Albumin/Globulin Ratio 1.88 Lipase 380U/L Current Medications Medications (Trade) Dose Ordered Sig/Ariel Route PRN Reason Start Time Stop Time Status Last Admin Dose Admin Sodium Chloride (NS) 1,000 ml @ 1,000 mls/hr Q1H STAT IV 03/24/17 12:25 03/24/17 13:24 DC 03/24/17 12:25 Ondansetron HCl (Zofran Inj) 4 mg ONCE STAT IV 03/24/17 12:25 03/24/17 12:34 DC 03/24/17 13:17 Famotidine (Pepcid Iv) 20 mg ONCE STAT IV 03/24/17 12:25 03/24/17 12:34 DC 03/24/17 13:17 Ondansetron HCl 4 mg 4 mg ONCE STAT IV 03/24/17 13:09 03/24/17 13:10 DC Sodium Chloride 1,000 ml @ 1,000 mls/hr Q1H STAT IV 03/24/17 14:09 03/24/17 15:08 DC Sodium Chloride (1/2 NS) 1,000 ml @ 80 mls/hr [id number] IV 03/24/17 14:51 Ondansetron HCl (Zofran Inj) 4 mg BRIDGE ORDER PRN IV NAUSEA AND/OR VOMITING 03/24/17 15:00 03/25/17 14:59 Acetaminophen (Tylenol Tab) 650 mg ER BRIDGE PRN PO MILD PAIN/FEVER 03/24/17 15:00 03/25/17 14:59 Procedures/MDM The patient's symptoms warrant an abdominal workup. The patient does have epigastric tenderness, which could be related to a gastric etiology. However, he did have recent surgery, which needs to be more closely evaluated. The patient's blood work was obtained and reviewed. The patient's CBC and CMP were unremarkable. Of note, the patient's lipase was elevated at 380. The patient's symptoms and history are consistent with pancreatitis. The patient will need to be made n.p.o. he will receive IV fluids and Zofran in the emergency department. The patient was also given Pepcid. He was offered subsequent pain medication, but he did not require in the emergency department at this time. A KUB was also completed that demonstrated a nonobstructive gas pattern. There are no findings of a small bowel obstruction. There is no obvious air under the diaphragm or intra-abdominal free air. The patient's surgeon was called to discuss the case. He felt that it was appropriate to admit the patient in an observational status and possibly have an endoscopy performed while he is in the hospital. The patient should continue to have IV fluids in the hospital. The patient was amenable with this plan. The patient's surgeon was consulted on the patient. He recommended that gastroenterology also be consulted in the hospital. The patient was otherwise stable while in the ER. Departure Diagnosis: Primary Impression: Postoperative complication Qualified Code: K91.89 - Postoperative surgical complication involving digestive system associated with digestive system procedure, unspecified complication Additional Impressions: Epigastric pain Nausea & vomiting Qualified Code: R11.2 - Non-intractable vomiting with nausea, unspecified vomiting type Elevated lipase Condition: EVENS Barragan MD Mar 24, 2017 14:01
[2017-03-24 14:16] VITALS: TEMP 98.4
--- NOTE | 2017-03-24 14:44 | RADRPT ---
PROCEDURE: XR Abdomen. CLINICAL INDICATION: Abdominal pain TECHNIQUE: Supine views of the abdomen were obtained. COMPARISON: None. FINDINGS: The bowel gas pattern is normal. There is no evidence of obstruction. No free intraperitoneal air i s seen. There are no abnormal calcifications overlying the urinary tracts. The osseous structures a re unremarkable. IMPRESSION: Nonobstructive bowel gas pattern. RPTAT: HPNM Physician Sid Date Time Electronically viewed and signed by Jos Dickerson Physician on 03/24/2017 14:43 /
[2017-03-24] MEDS: SOD CHLORIDE 0.45% 1,000 ML IV SCH (14:51)
[2017-03-24] MEDS ORDERED: ONDANSETRON 4 MG INJ IV PRN (15:00)
[2017-03-24] MEDS ORDERED: ACETAMINOPHEN 325 MG TAB PO PRN (15:00)
[2017-03-24 16:31] VITALS: BP 121/71; PULSE 71; RESP 16
--- NOTE | 2017-03-24 17:50 | HP ---
Date/Time of Note Date/Time of Note DATE: 03/24/17 TIME: 17:32 Assessment/Plan VTE Prophylaxis VTE Prophylaxis Intervention: SCD's Lines/Catheters IV Catheter Type (from [facility]): Saline Lock Urinary Cath still in place: No Assessment/Plan Assessment/Plan -Intractable nausea and vomiting, continue Zofran as needed, continue morphine as needed for pain, IV fluids, n.p.o. for now. Dr Tejada is asked to seepatient from general surgery consultation. Dr Benedict is asked to see pt in GI consultation. -Epigastric pain -S/ p laparoscopic exploration with kocherization of the duodenum as part of the Darius's procedure, status post laparoscopic appendectomy by Dr. Tejada and Dr Mullins on March 13 -Elevated lipase, continue IV fluids n.p.o. and monitor lipase level. -Rule out ileus Further recommendations based on clinical course. Plan of care discussed with Dr. Raymundo. HPI/ROS Admit Date/Time Admit Date/Time Mar 24, 2017 at 14:53 Hx of Present Illness The patient is 37-year-old male who developed bowel obstruction and intestinal irritation anomaly and underwent laparoscopic exploration with kocherization of the duodenum as part of the Darius's procedure by Dr. Tejada on March 13. Patient also underwent appendectomy at that time. Patient recovered well after surgery was able to tolerate regular diet and had a bowel movements. Patient presented today to the emergency room with epigastric pain and burning sensation accompanied by nausea and vomiting. Patient stated that he was not able to keep any food including liquids since Friday. Patient denies any shortness of breath denies any chest pain, denies diarrhea, denies dark or tarry stool. Patient underwent KUB in the emergency room which revealed nonobstructive gas pattern. Patient noted to have elevated lipase to 380. No leukocytosis noted, liver enzymes are within normal limits, patient is giving Zofran as needed for nausea and Pepcid and admitted for further evaluation and management to medical surgical floor. ROS Per HPI PMH/Family/Social Past Medical History Per HPI, otherwise healthy male Medical History: no pertinent history Past Surgical History laparoscopic exploration with kocherization of the duodenum as part of the Darius 's procedure Past Surgical Hx: appendectomy Family History Significant Family History: no pertinent family hx Social History Alcohol Use: occasionally Smoking Status: Never smoker Drug Use: none Exam/Review of Systems Vital Signs Vitals Vital Signs Date Time Temp Pulse Resp B/P Pulse Ox O2 Delivery O2 Flow Rate FiO2 03/24/17 16:31 98.4 71 16 121/71 98 Room Air Exam Constitutional: alert, oriented Head: normocephalic Neck: supple Respiratory: clear to auscultation Cardiovascular: nl pulses Gastrointestinal: bowel sounds (Present), soft, tender Musculoskeletal: nl extremities to inspection Extremities: normal pulses Neurological: nl mental status Skin: nl turgor Labs Result Diagram: 03/24/17 1240 03/24/17 1240 Medications Medications Current Medications Sodium Chloride (1/2 NS) 1,000 ml @ 80 mls/hr [id number] IV ; Start 03/24/17 at 14: 51 NYA PARNELL Mar 24, 2017 17:43
[2017-03-24] MEDS ORDERED: morphine 2 MG INJ IV PRN (18:00)
[2017-03-24] MEDS: D5W-0.45 NACL + KCL 20 MEQ 1,000 ML IV SCH (18:16)
[2017-03-24] MEDS ORDERED: BARIUM SULF 2% 450 ML BTL (BERRY SMOOTHIE) PO ONE (19:00)
[2017-03-24 19:10] VITALS: BP 110/65; RESP 18
--- NOTE | 2017-03-24 20:35 | PN ---
Date/Time of Note Date/Time of Note DATE: 03/24/17 TIME: 20:31 Assessment/Plan Lines/Catheters IV Catheter Type (from Nrs): Saline Lock [place] in Place (from Nrs): No Assessment/Plan Assessment/Plan [facility] Progress Note Date of Service: 03/15/2017 Place of service: [facility] second floor [facility] Today's Assessment & Plan: Readmitted with bloating, nausea and vomiting of unclear etiology. Differential includes ulcer disease, gastritis, reflux disease, anatomical issues, or other problems. Postoperative infection and abscess is less likely. Will need further evaluation with gastroenterology as well as possible studies. Explained to patient and answered all questions to the best my ability. Patient appeared to understand and agreed with the plans. With above assessment, I've recommended the following for today: 1. Keep in-house 2. Appreciate gastroenterology input 3. Possible need for upper endoscopy 4. Proton pump inhibitors 5. Possible need for further imaging evaluation in the form of upper GI with small bowel follow-through, oral contrast axial images, or other studies 6. Labs in a.m. Thank you again for your great care of this very pleasant patient and wonderful family. If there are any questions, please feel free to call me at [phone]. Nature of presenting problem: High severity Please note that, given the extensive number of diagnoses or management options , the extensive amount and/or complexity of data needed to be reviewed, and high risk of complications and/or morbidity or mortality, this qualifies as high complexity type of decision-making. Disclaimer: Inadvertent spelling and grammatical errors are likely due to EHR/ dictation software use and do not reflect on the quality of delivered patient care. Also, please note that the electronic time recorded on this node does not necessarily reflect the actual time of the visit. Updated clinical summary: A very-pleasant otherwise fairly healthy 37-year-old gentleman presenting with possible malrotation of his bowel including his colon. S/p laparoscopic exploration with kocherization of duodenum as part of [place]'s procedure [facility] 03/13/2017. Discharged home 03/15/2017. Comorbidities: 1. 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 ABDOMEN: Soft, essentially nontender and nondistended. Incisions are clean, dry and intact without any evidence of obvious erythema, edema, discharge, or hernia. There are no peritoneal signs or guarding. SKIN: Skin appears to be pink and feels warm to touch. NEUROLOGIC: Patient is awake, alert, and follows commands appropriately. Labs: See below Exam/Review of Systems Vital Signs Vitals Vital Signs Date Time Temp Pulse Resp B/P Pulse Ox O2 Delivery O2 Flow Rate FiO2 03/24/17 19:10 98.2 62 18 110/65 97 03/24/17 16:31 Room Air Results Result Diagram: 03/24/17 1240 03/24/17 1240 AIDEN MATA M.D. Mar 24, 2017 20:35
[2017-03-24] MEDS: FAMOTIDINE 20 MG INJ IV SCH (20:37)
[2017-03-25 02:05] VITALS: BP 107/64; RESP 20
[2017-03-25] MEDS: SOD CHLORIDE 0.45% 1,000 ML IV SCH ×2 (02:25→15:51)
--- NOTE | 2017-03-25 03:17 | CONS ---
DATE OF ADMISSION: 03/24/2017 DATE OF CONSULTATION: 03/24/[address] Espinosa: Thank you for asking me to see Mr. Whyte in GI consultation. HISTORY OF PRESENT ILLNESS: The patient is a 37-year-old, [place] national who is working here in the [facility]. Apparently, he is admitted to the hospital because of vomiting. Ten days ago, he underwent surgery for malrotation of the gut. He underwent what they described as a cauterization of the duodenum and the rest of the procedure was a Darius's procedure for malrotation of the gut. Prior to admission, at that time, he had excruciating pain, and because of that, he was admitted to the hospital. After the surgery, he went home and was doing well until Friday when he developed abdominal discomfort and nausea and vomiting Friday and Friday. Subsequently, he was admitted to the hospital. No history of vomiting blood or passing blood per rectum. No history of diarrhea. REVIEW OF SYSTEMS: Grossly unremarkable. PAST MEDICAL HISTORY: Essentially as mentioned above. The patient was found to have malrotation of the gut. He had laparoscopic exploration with cauterization of the duodenum and Darius's procedure done by Dr. Tejada. He has no history of other medical problems at this time. MEDICATION: Prior to the admission, include Mongo and finasteride. SOCIAL HISTORY: The patient does not smoke. He works in a [employer] industry. He drinks alcohol on a social basis. FAMILY HISTORY: Unremarkable. PHYSICAL EXAMINATION: GENERAL: The patient is a 37-year-old, white gentleman who, at this time, is alert. He is well built. VITALS: He is afebrile, temperature 98.4, blood pressure 121/71. HEART: Normal heart sounds. LUNGS: Normal breath sounds. ABDOMEN: Showed multiple small surgical scars indicating recent laparoscopic surgery. No significant abdominal distention. He exhibited minor tenderness on palpation. LABORATORY: WBC count is 9300, hemoglobin 15.3, platelet count of 263,000. Potassium 3.6, sodium 145, creatinine 1.1. Total bilirubin 0.6, AST 23, ALT 39, alk phos 64, lipase 380. IMPRESSION: The patient is presenting with a history of abdominal pain and vomiting for the past 3 days, and he underwent duodenal cauterization and also [place]'s procedure for the malrotation of the gut. At this time, I suspect we should rule out the possibility that he may have a small bowel obstruction, and probably the elevation of the lipase, could be due to bowel obstruction itself. Certainly, he could have a mild pancreatitis. PLAN: Recommend CT scan of the abdomen for further evaluation. Once again, doctor, thank you for this consultation. Dictated By: Morris Benedict MD /radha/gem /Document#: [id number]
[2017-03-25] MEDS: D5W-0.45 NACL + KCL 20 MEQ 1,000 ML IV SCH ×3 (04:09→23:05)
[2017-03-25 05:32] LABS: BASOPHILS % 0.6 % (0.0-2.0); EOSINOPHILS # 0.1 10^3/ul (0.0-0.5); EOSINOPHILS % 1.4 % (0.0-7.0); HEMATOCRIT 37.4 % (42.0-52.0); HEMOGLOBIN 12.1 g/dl (14.0-18.0); LYMPHOCYTES # 2.1 10^3/ul (0.8-2.9); LYMPHOCYTES % 41.8 % (15.0-51.0); MEAN CORPUSCULAR HEMOGLOBIN 28.8 pg (29.0-33.0); MEAN CORPUSCULAR HGB CONC 32.4 g/dl (32.0-37.0); MONOCYTE # 0.5 10^3/ul (0.3-0.9); MONOCYTES % 9.2 % (0.0-11.0); NEUTROPHIL # 2.3 10^3/ul (1.6-7.5); NEUTROPHILS % 46.8 % (39.0-77.0); PLATELET COUNT 213 10^3/UL (140-415); RED CELL DISTRIBUTION WIDTH 12.1 % (11.5-14.5)
[2017-03-25 05:43] LABS: INR 1.15; PROTIME 14.7 Sec (12.2-14.2); PT RATIO 1.1
[2017-03-25 05:46] LABS: ALBUMIN 3.8 g/dl (3.3-4.9); ALBUMIN/GLOBULIN RATIO 1.65; BILIRUBIN,INDIRECT 0.5 mg/dl (0-1.1); BILIRUBIN,TOTAL 0.5 mg/dl (0.2-1.3); CALCIUM 8.9 mg/dl (8.4-10.2); CREATININE 1.14 mg/dl (0.61-1.24); MAGNESIUM 2.1 mg/dl (1.7-2.5); PHOSPHORUS 5.1 mg/dl (2.5-4.9); POTASSIUM 4.2 mmol/L (3.5-5.1); TOTAL PROTEIN 6.1 g/dl (6.1-8.1)
[2017-03-25 07:41] VITALS: BP 114/74; RESP 18
[2017-03-25] MEDS: FAMOTIDINE 20 MG INJ IV SCH ×2 (09:18→21:11)
[2017-03-25] MEDS ORDERED: SOD CHLORIDE 0.9% 100 ML ONE (09:30)
[2017-03-25] MEDS ORDERED: IOHEXOL 300MG/ML 150 ML BTL ONE (09:30)
--- NOTE | 2017-03-25 11:22 | RADRPT ---
PROCEDURE: CT Abdomen and Pelvis with contrast. CLINICAL INDICATION: Vomiting. Recent surgery for malrotation. TECHNIQUE: Multiple contiguous axial CT images of the abdomen and pelvis were obtained following t he administration of 100 cc of Omnipaque-300. Coronal and sagittal reconstructions were also perfor med. CTDIvol (mGy): 12.27; Total Exam DLP (mGy-cm): 677.03. One or more of the following dose reduction techniques were utilized: - Automated exposure control. - Adjustment of the mA and/or kV according to patient size. - Use of iterative reconstruction technique. COMPARISON: Abdominal x-ray 03/24/2017. CTA abdomen 03/13/2017. FINDINGS: Limited imaging of the lower thorax is unremarkable. The liver and spleen are homogeneous in enhancement. The gallbladder, pancreas and adrenal glands a re unremarkable. The kidneys are symmetric in size and enhancement. There is no hydronephrosis or abnormal perinephr ic inflammation. There are no ureteral stones. The abdominal aorta is normal in caliber. There is no periaortic / retroperitoneal lymphadenopathy. The stomach and small and large intestines are largely collapsed. There is no intestinal dilatation to suggest obstruction. A small surgical clip is seen within the central upper abdomen adjacent to the intestines. Imaging findings are compatible with the patient's history of recent surgery for m alrotation. The small intestines are located within the right side of the abdomen and the large inte judy are located within the left side of the abdomen. In addition, the SMV is located to the left of the SMA in keeping with malrotation anatomy. Minimal mild mesenteric edema is present. There is no evidence of organized fluid collection. There is no mesenteric lymphadenopathy. There is no as cites. The bladder, prostate and seminal vesicles are unremarkable. There is a small amount of free pelvic fluid. There is no pelvic sidewall or inguinal lymphadenopathy. Bilateral L5 pars interarticularis defects are present. Associated grade 1 anterolisthesis is obser silvina. Body wall soft tissues are unremarkable. IMPRESSION: No evidence of abdominopelvic mass, lymphadenopathy or acute inflammatory pathology. Intestinal malrotation with interval surgery. Mild mesenteric edema and free fluid within the pelvis are observed. No evidence of intestinal obstruction or organized fluid collection. Bilateral L5 spondylolysis with grade 1 anterolisthesis. RPTAT: HLST .Vianca Zazueta MD, MD Date Time Electronically viewed and signed by .Vianca Zazueta MD, on 03/25/2017 11:22 .T/
[2017-03-25 13:06] VITALS: BP 111/69; RESP 20
--- NOTE | 2017-03-25 14:23 | PN ---
Date/Time of Note Date/Time of Note DATE: 03/25/17 TIME: 14:17 Assessment/Plan VTE Prophylaxis VTE Prophylaxis Intervention: SCD's Lines/Catheters IV [facility] Type [facility]from [facility] Peripheral IV Urinary Cath still in place: No Assessment/Plan Chief Complaint/Hosp Course Patient level is decreased, patient's complains of being hungry, currently is n.p.o. continued on IV fluids. Problems: Assessment/Plan Assessment/Plan -Intractable nausea and vomiting, continue Zofran as needed, continue morphine as needed for pain, IV fluids, n.p.o. for now. Dr Tejada is following from general surgery consultation. Dr Benedict is following in GI consultation. -Epigastric pain, resolved. -S/ p laparoscopic exploration with kocherization of the duodenum as part of the [place]'s procedure, status post laparoscopic appendectomy by Dr. Tejada and Dr Mullins on March 13 -Elevated lipase, continue IV fluids n.p.o. and monitor lipase level. -Rule out SBO Further recommendations based on clinical course. Plan of care discussed with Dr. Raymundo. Exam/Review of Systems Vital Signs Vitals Vital Signs Date Time Temp Pulse Resp B/P Pulse Ox O2 Delivery O2 Flow Rate FiO2 03/25/17 13:06 97.9 58 20 111/69 97 03/24/17 16:31 Room Air Intake and Output 03/24/17 03/24/17 03/25/17 14:59 22:59 06:59 Intake Total 1100 ml Output Total 650 ml Balance 450 ml Exam Constitutional: alert, oriented Neck: supple Respiratory: normal air movement Cardiovascular: nl pulses Gastrointestinal: non-tender, soft Extremities: normal pulses Neurological: nl mental status Skin: nl turgor Results Result Diagram: 03/25/17 0458 03/25/17 0458 Results 24 hrs Laboratory Tests Test 03/25/17 04:58 White Blood Count 5.0 # Red Blood Count 4.20 L Hemoglobin 12.1 #L Hematocrit 37.4 L Mean Corpuscular Volume 89.0 Mean Corpuscular Hemoglobin 28.8 L Mean Corpuscular Hemoglobin Concent 32.4 Red Cell Distribution Width 12.1 Platelet Count 213 Mean Platelet Volume 12.0 H Neutrophils % 46.8 Lymphocytes % 41.8 Monocytes % 9.2 Eosinophils % 1.4 Basophils % 0.6 Nucleated Red Blood Cells % 0.0 Neutrophils # 2.3 Lymphocytes # 2.1 Monocytes # 0.5 Eosinophils # 0.1 Basophils # 0.0 Nucleated Red Blood Cells # 0.0 Prothrombin Time 14.7 H Prothrombin Time Ratio 1.1 INR International Normalized Ratio 1.15 Activated Partial Thromboplast Time 31.0 Sodium Level 144 Potassium Level 4.2 Chloride Level 103 Carbon Dioxide Level 28 Anion Gap 17 H Blood Urea Nitrogen 20 Creatinine 1.14 Glucose Level 96 Lactic Acid Level 0.6 Calcium Level 8.9 Phosphorus Level 5.1 H Magnesium Level 2.1 Total Bilirubin 0.5 Direct Bilirubin 0.00 Indirect Bilirubin 0.5 Aspartate Amino Transf (AST/SGOT) 19 Alanine Aminotransferase (ALT/SGPT) 36 Alkaline Phosphatase 39 L Total Protein 6.1 # Albumin 3.8 # Globulin 2.30 Albumin/Globulin Ratio 1.65 Lipase 225 Medications Medications Current Medications Sodium Chloride 1,000 ml @ 80 mls/hr [id number] IV ; Start 03/24/17 at 14:51 Potassium Chloride/Dextrose/ Sod Cl (D5-1/2ns + KCl 20 Meq) 1,000 ml @ 100 mls/ hr Q10H IV Last administered on 03/25/17 04:09; Admin Dose 100 MLS/HR; Start at 17:55 Ondansetron HCl (Zofran Inj) 4 mg Q6H PRN IV NAUSEA AND/OR VOMITING; Start 03/24 at 18:00 Morphine Sulfate (morphine) 2 mg Q4H PRN IV SEVERE PAIN LEVEL 7-10; Start at 18:00 Famotidine (Pepcid Iv) 20 mg Q12 IV Last administered on 03/25/17 09:18; Admin Dose 20 MG; Start 03/24/17 at 21:00 NYA PARNELL Mar 25, 2017 14:23
--- NOTE | 2017-03-25 15:26 | PN ---
Date/Time of Note Date/Time of Note DATE: 03/25/17 TIME: 15:18 Assessment/Plan Lines/Catheters IV Catheter Type (from [facility]): Peripheral IV [place] in Place (from [facility]): No Assessment/Plan Assessment/Plan [facility] Progress Note Date of Service: 03/25/2017 Place of service: [facility] second floor [facility] Today's Assessment & Plan: Overall stable and improved. CT scan of abdomen and pelvis demonstrated no obvious surgical etiology. My suspicion is still intragastric pathology and advised Dr. Benedict to please consider doing an upper endoscopy. Discussed with patient and answered all questions. Patient appeared to understand and agreed with the plans. Previous assessment that is still relevant today: Readmitted with bloating, nausea and vomiting of unclear etiology 03/24/2017. Differential included ulcer disease, gastritis, reflux disease, anatomical issues, or other problems. Postoperative infection and abscess was less likely. Further evaluation with gastroenterology was obtained. With above assessment, I've recommended the following for today: 1. Keep in-house 2. Appreciate gastroenterology input; resumption of diet once plans cleared by GI 3. Possible need for upper endoscopy 4. Proton pump inhibitors 5. Labs in a.m. Thank you again for your great care of this very pleasant patient and wonderful family. If there are any questions, please feel free to call me at [phone]. Nature of presenting problem: High severity Please note that, given the extensive number of diagnoses or management options , the extensive amount and/or complexity of data needed to be reviewed, and high risk of complications and/or morbidity or mortality, this qualifies as high complexity type of decision-making. Disclaimer: Inadvertent spelling and grammatical errors are likely due to EHR/ dictation software use and do not reflect on the quality of delivered patient care. Also, please note that the electronic time recorded on this node does not necessarily reflect the actual time of the visit. Updated clinical summary: A very-pleasant otherwise fairly healthy 37-year-old gentleman presenting with possible malrotation of his bowel including his colon. S/p laparoscopic exploration with kocherization of duodenum as part of [place]'s procedure [facility] 03/13/2017. Discharged home 03/15/2017. Comorbidities: 1. 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 Bilateral pars defects of L5 with grade 1 anterolisthesis of L5 on S1 Subjective: No major events or complaints since admission; reported feeling better; no major abd pain; no d; no sob or cp; + flatus; + BM; + activity Objective: Vitals: See below I's & O's: See below Exam: GENERAL: On exam, the patient was lying in bed and appeared to be comfortable and in no acute distress. ABDOMEN: Soft, essentially nontender and nondistended. Incisions are clean, dry and intact without any evidence of obvious erythema, edema, discharge, or hernia. There are no peritoneal signs or guarding. SKIN: Skin appears to be pink and feels warm to touch. NEUROLOGIC: Patient is awake, alert, and follows commands appropriately. Labs: See below Exam/Review of Systems Vital Signs Vitals Vital Signs Date Time Temp Pulse Resp B/P Pulse Ox O2 Delivery O2 Flow Rate FiO2 03/25/17 13:06 97.9 58 20 111/69 97 03/24/17 16:31 Room Air Intake and Output 03/24/17 03/24/17 03/25/17 15:00 23:00 07:00 Intake Total 1100 ml Output Total 650 ml Balance 450 ml Results Result Diagram: 03/25/17 0458 03/25/17 0458 AIDEN MATA M.D. Mar 25, 2017 15:26
[2017-03-25 20:00] VITALS: BP 111/66; RESP 18
--- NOTE | 2017-03-25 23:59 | CONS ---
DATE OF ADMISSION: 03/24/2017 DATE OF CONSULTATION: 03/25/2017 HISTORY OF PRESENT ILLNESS: The patient admitted with abdominal pain and vomiting. He had a recent surgery for malrotation of the GI tract. Right now he is presenting with abdominal pain and vomiting. Rule out peptic ulcer disease. CT scan of the abdomen did not show any evidence of bowel obstruction. Rule out peptic ulcer disease is the main consideration at this time. PHYSICAL EXAMINATION: GENERAL APPEARANCE: He is alert, he is afebrile. HEART: Normal heart sounds. LUNGS: Normal breath sounds. ABDOMEN: Showed unremarkable findings. LABORATORY: The laboratory workup: Hemoglobin dropped to 12 g from 15 g. The lipase is improved to normal levels. CT scan of the abdomen is unremarkable. IMPRESSION: 1. Rule out peptic ulcer disease. 2. Gastritis. 3. Duodenitis. PLAN: We will proceed with EGD. Dictated By: Morris Benedict MD /radha/ /Document#: [id number] CC: Julio Tejada MD;*EndCC*
[2017-03-26] VITALS (12 sets, daily range): BP systolic 102–127; BP diastolic 58–76; PULSE 52–69; RESP 12–19
[2017-03-26] MEDS: SOD CHLORIDE 0.45% 1,000 ML IV SCH (01:48)
[2017-03-26 05:13] LABS: BASOPHILS % 0.6 % (0.0-2.0); EOSINOPHILS # 0.1 10^3/ul (0.0-0.5); EOSINOPHILS % 2.3 % (0.0-7.0); HEMATOCRIT 36.8 % (42.0-52.0); HEMOGLOBIN 12.1 g/dl (14.0-18.0); LYMPHOCYTES # 1.7 10^3/ul (0.8-2.9); LYMPHOCYTES % 32.4 % (15.0-51.0); MEAN CORPUSCULAR HEMOGLOBIN 29.2 pg (29.0-33.0); MEAN CORPUSCULAR HGB CONC 32.9 g/dl (32.0-37.0); MEAN CORPUSCULAR VOLUME 88.9 fl (82.0-101.0); MEAN PLATELET VOLUME 12.1 fl (7.4-10.4); MONOCYTE # 0.5 10^3/ul (0.3-0.9); MONOCYTES % 9.1 % (0.0-11.0); NEUTROPHIL # 2.9 10^3/ul (1.6-7.5); NEUTROPHILS % 55.4 % (39.0-77.0); PLATELET COUNT 187 10^3/UL (140-415); RED BLOOD COUNT 4.14 10^6/ul (4.70-6.10); RED CELL DISTRIBUTION WIDTH 11.9 % (11.5-14.5); WHITE BLOOD COUNT 5.2 10^3/ul (4.8-10.8)
[2017-03-26 05:40] LABS: CALCIUM 8.8 mg/dl (8.4-10.2); CREATININE 0.98 mg/dl (0.61-1.24); POTASSIUM 3.9 mmol/L (3.5-5.1)
[2017-03-26] MEDS ORDERED: PROPOFOL 200 MG INJ ONE (07:00)
[2017-03-26] MEDS: ONDANSETRON 4 MG INJ IV PRN ×3 (08:41→23:53)
[2017-03-26] MEDS: FAMOTIDINE 20 MG INJ IV SCH ×2 (08:41→20:34)
[2017-03-26] MEDS: D5W-0.45 NACL + KCL 20 MEQ 1,000 ML IV SCH (09:55)
--- NOTE | 2017-03-26 12:47 | PN ---
Date/Time of Note Date/Time of Note DATE: 03/26/17 TIME: 12:44 Assessment/Plan VTE Prophylaxis VTE Prophylaxis Intervention: SCD's Lines/Catheters IV Catheter Type (from Nrs): Peripheral IV Urinary Cath still in place: No Assessment/Plan Chief Complaint/Hosp Course Patient was felt nauseous and bloated after a small cup of soup last night, denies emesis, currently n.p.o., pending EGD today. Assessment/Plan -Intractable nausea and vomiting, continue Zofran as needed, continue morphine as needed for pain, IV fluids, n.p.o. for now. Dr Tejada is following from general surgery consultation. Dr Benedict is following in GI consultation. -Epigastric pain, resolved. -S/ p laparoscopic exploration with kocherization of the duodenum as part of the [place]'s procedure, status post laparoscopic appendectomy by Dr. Tejada and Dr Mullins on March 13 -Elevated lipase, continue IV fluids n.p.o. and monitor lipase level. -Rule out SBO Further recommendations based on clinical course. Plan of care discussed with Dr. Raymundo. Problems: Exam/Review of Systems Vital Signs Vitals Vital Signs Date Time Temp Pulse Resp B/P Pulse Ox O2 Delivery O2 Flow Rate FiO2 03/26/17 12:39 98.9 68 18 118/75 100 Room Air Intake and Output 03/25/17 03/25/17 03/26/17 15:00 23:00 07:00 Intake Total 300 ml 1340 ml Balance 300 ml 1340 ml Exam Constitutional: alert, oriented Neck: supple Respiratory: normal air movement Cardiovascular: nl pulses Gastrointestinal: non-tender, soft Extremities: normal pulses Neurological: nl mental status Skin: nl turgor Results Result Diagram: 03/26/17 0432 03/26/17 0432 Results 24 hrs Laboratory Tests Test 03/26/17 04:32 White Blood Count 5.2 Red Blood Count 4.14 L Hemoglobin 12.1 L Hematocrit 36.8 L Mean Corpuscular Volume 88.9 Mean Corpuscular Hemoglobin 29.2 Mean Corpuscular Hemoglobin Concent 32.9 Red Cell Distribution Width 11.9 Platelet Count 187 Mean Platelet Volume 12.1 H Neutrophils % 55.4 Lymphocytes % 32.4 Monocytes % 9.1 Eosinophils % 2.3 Basophils % 0.6 Nucleated Red Blood Cells % 0.0 Neutrophils # 2.9 Lymphocytes # 1.7 Monocytes # 0.5 Eosinophils # 0.1 Basophils # 0.0 Nucleated Red Blood Cells # 0.0 Sodium Level 144 Potassium Level 3.9 Chloride Level 103 Carbon Dioxide Level 27 Anion Gap 18 H Blood Urea Nitrogen 11 # Creatinine 0.98 Glucose Level 84 Calcium Level 8.8 Lipase 185 Medications Medications Current Medications Sodium Chloride 1,000 ml @ 80 mls/hr [id number] IV Last administered on 03/26/17 01:48; Admin Dose 80 MLS/HR; Start 03/24/17 at 14:51 Potassium Chloride/Dextrose/ Sod Cl (D5-1/2ns + KCl 20 Meq) 1,000 ml @ 100 mls/ hr Q10H IV Last administered on 03/25/17 15:47; Admin Dose 100 MLS/HR; Start at 17:55 Ondansetron HCl (Zofran Inj) 4 mg Q6H PRN IV NAUSEA AND/OR VOMITING Last administered on 03/26/17 08:41; Admin Dose 4 MG; Start 03/24/17 at 18:00 Morphine Sulfate (morphine) 2 mg Q4H PRN IV SEVERE PAIN LEVEL 7-10; Start at 18:00 Famotidine (Pepcid Iv) 20 mg Q12 IV Last administered on 03/26/17 08:41; Admin Dose 20 MG; Start 03/24/17 at 21:00 NYA PARNELL Mar 26, 2017 12:47
--- NOTE | 2017-03-26 12:56 | OPPN ---
Date/Time of Note Date/Time of Note DATE: 03/26/17 TIME: 12:56 MAXIME CHAVEZ MD Mar 26, 2017 12:56
--- NOTE | 2017-03-26 13:01 | OPPN ---
Date/Time of Note Date/Time of Note DATE: 03/26/17 TIME: 12:57 Proc Note GI Procedure date: Mar 26, 2017 Pre-procedure Diagnosis egd Post-procedure Diagnosis pre pyloric ulcers retained gastric contents gastric fundal polyps Operation Performed egd Surgeon: MAXIME CHAVEZ MD Tourniquet Time: nopne Estimated blood loss: none Transfusion Required: no Specimen: none Grafts/Implants: none Grafts/Implants none Tubes/Drains none Complications: no Pt Condition post procedure: stable Indications vomitting Operative\Procedure Findings 1]mild gerd 2] retained gastric contents 3 prepyloric ulcers prob gastroperesis Procedure Description see dictation MAXIME CHAVEZ MD Mar 26, 2017 13:01
[2017-03-26] MEDS: METOCLOPRAMIDE 10 MG TAB PO SCH (17:43)
--- NOTE | 2017-03-26 19:52 | PN ---
Date/Time of Note Date/Time of Note DATE: 03/26/17 TIME: 19:48 Assessment/Plan Lines/Catheters IV Catheter Type (from [facility]): Saline Lock [place] in Place (from [facility]): No Assessment/Plan Assessment/Plan [facility] Progress Note Date of Service: 03/26/2017 Place of service: [facility] second floor [facility] Today's Assessment & Plan: Overall stable and improved. Mild esophagitis on EGD. ? gastroparesis. No surgical issues currently. Appreciate Dr. Bateman's care. Discussed with patient and his partner and answered all questions. Patient and family appeared to understand and agreed with the plans. Previous assessment that is still relevant today: Readmitted with bloating, nausea and vomiting of unclear etiology 03/24/2017. Differential included ulcer disease, gastritis, reflux disease, anatomical issues, or other problems. Postoperative infection and abscess was less likely. Further evaluation with gastroenterology was obtained. With above assessment, I've recommended the following for today: 1. Keep in-house 2. Appreciate gastroenterology input 3. Cont advancing diet 4. Proton pump inhibitors 5. Labs in a.m. Thank you again for your great care of this very pleasant patient and wonderful family. If there are any questions, please feel free to call me at [phone]. Nature of presenting problem: High severity Please note that, given the extensive number of diagnoses or management options , the extensive amount and/or complexity of data needed to be reviewed, and high risk of complications and/or morbidity or mortality, this qualifies as high complexity type of decision-making. Disclaimer: Inadvertent spelling and grammatical errors are likely due to EHR/ dictation software use and do not reflect on the quality of delivered patient care. Also, please note that the electronic time recorded on this node does not necessarily reflect the actual time of the visit. Updated clinical summary: A very-pleasant otherwise fairly healthy 37-year-old gentleman presenting with possible malrotation of his bowel including his colon. S/p laparoscopic exploration with kocherization of duodenum as part of [place]'s procedure [facility] 03/13/2017. Discharged home 03/15/2017. EGD [facility] 03/26/17 with mild gastritis. Comorbidities: 1. 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 Bilateral pars defects of L5 with grade 1 anterolisthesis of L5 on S1 Subjective: No major events or complaints since admission; reported feeling better; no major abd pain; no d; no sob or cp; + flatus; + BM; + activity; took in regular diet tonight and so far, staying down. Objective: Vitals: See below I's & O's: See below Exam: GENERAL: On exam, the patient was lying in bed and appeared to be comfortable and in no acute distress. ABDOMEN: Soft, nontender and nondistended. Incisions are clean, dry and intact without any evidence of obvious erythema, edema, discharge, or hernia. There are no peritoneal signs or guarding. SKIN: Skin appears to be pink and feels warm to touch. NEUROLOGIC: Patient is awake, alert, and follows commands appropriately. Labs: See below Exam/Review of Systems Vital Signs Vitals Vital Signs Date Time Temp Pulse Resp B/P Pulse Ox O2 Delivery O2 Flow Rate FiO2 03/26/17 19:28 98.6 68 18 121/71 97 03/26/17 14:07 Room Air Intake and Output 03/25/17 03/25/17 03/26/17 15:00 23:00 07:00 Intake Total 300 ml 1340 ml Balance 300 ml 1340 ml Results Result Diagram: 03/26/17 0432 03/26/17 0432 AIDEN MATA M.D. Mar 26, 2017 19:52
[2017-03-27 07:00] VITALS: BP 113/69; RESP 18
[2017-03-27] MEDS: METOCLOPRAMIDE 10 MG TAB PO SCH ×3 (08:12→17:25)
[2017-03-27] MEDS: FAMOTIDINE 20 MG INJ IV SCH (08:13)
--- NOTE | 2017-03-27 12:49 | PN ---
Date/Time of Note Date/Time of Note DATE: 03/27/17 TIME: 12:46 Assessment/Plan VTE Prophylaxis VTE Prophylaxis Intervention: other Lines/Catheters IV Catheter Type (from Nrs): Saline Lock Urinary Cath still in place: No Assessment/Plan Assessment/Plan -Intractable nausea and vomiting, continue Zofran as needed, continue morphine as needed for pain, IV fluids, n.p.o. for now. - per Dr Tejada in general surgery consultation. - SP EGD - Dr Benedict is following in GI consultation. -Epigastric pain, resolved. -S/ p laparoscopic exploration with kocherization of the duodenum as part of the [place]'s procedure, status post laparoscopic appendectomy by Dr. Tejada and Dr Mullins on March 13 -Elevated lipase, continue IV fluids n.p.o. and monitor lipase level. -Rule out SBO Further recommendations based on clinical course. Plan of care discussed with Dr. Raymundo. Subjective 24 Hr Interval Summary Free Text/Dictation Patient feels less bloated after food today. denies emesis, sp EGD yesterday. dw staff. Respiratory: no complaints Cardiovascular: no complaints Gastrointestinal: other (bloating) Genitourinary: no complaints Musculoskeletal: no complaints Exam/Review of Systems Vital Signs Vitals Vital Signs Date Time Temp Pulse Resp B/P Pulse Ox O2 Delivery O2 Flow Rate FiO2 03/27/17 07:00 98.5 57 18 113/69 98 03/26/17 14:07 Room Air Intake and Output 03/26/17 03/26/17 03/27/17 15:00 23:00 07:00 Intake Total 560 ml 520 ml 1050 ml Output Total 700 ml 950 ml Balance 560 ml -180 ml 100 ml Exam Constitutional: alert, oriented, well developed Respiratory: clear to auscultation, normal air movement Cardiovascular: nl pulses, regular rate and rhythm Gastrointestinal: other, tender Musculoskeletal: nl extremities to inspection Extremities: normal pulses Neurological: nl mental status, nl speech Results Result Diagram: 03/26/1743103/26/17431 Medications Medications Current Medications Ondansetron HCl (Zofran Inj) 4 mg Q6H PRN IV NAUSEA AND/OR VOMITING Last administered on 03/26/17t 23:53; Admin Dose 4 MG; Start 03/24/17 at 18:00 Morphine Sulfate (morphine) 2 mg Q4H PRN IV SEVERE PAIN LEVEL 7-10 Last administered on 03/26/17 23:53; Admin Dose 2 MG; Start 03/24/17 at 18:00 Famotidine (Pepcid Iv) 20 mg Q12 IV Last administered on 03/27/17 08:13; Admin Dose 20 MG; Start 03/24/17 at 21:00 STARLA LOW Mar 27, 2017 12:49
--- NOTE | 2017-03-27 12:52 | PDOCDIS ---
Discharge Instructions CONDITION Patient Condition: Stable HOME CARE INSTRUCTIONS: Diet Instructions: ACTIVITY: Activity Restrictions: Slowly Increase Activity Rest between Activity Avoid heavy lifting Do not operate Machinery Do not operate Power Tool Avoid Heavy Housework Bathing Restrictions: Sponge Bath FOLLOW UP/APPOINTMENTS Follow-up Plan FU with Primary MD x 1 week FU with surgery as recommended FU with GI as recommended Call 911 or go to the nearest hospital if symptoms get worse. Patient verbalized understanding DC instructions. STARLA LOW Mar 27, 2017 12:51
[2017-03-27] MEDS ORDERED: METO10TA92 PO (13:00)
[2017-03-27] MEDS ORDERED: ONDA4TAB8 PO (13:00)
[2017-03-27] MEDS ORDERED: PANT40TA3 PO (13:00)
[2017-03-27] MEDS ORDERED: DOCU-144 PO (13:02)
--- NOTE | 2017-03-27 13:04 | DS ---
Date/Time of Note Date/Time of Note DATE: 03/27/17 TIME: 13:03 Discharge Summary Admission/Discharge Info Admit Date/Time Mar 26, 2017 at 20:27 Discharge Date/Time Discharge Diagnosis -Intractable nausea and vomiting- resolved -Epigastric pain, resolved. -S/ p laparoscopic exploration with cauterization of the duodenum as part of the [place]'s procedure -status post laparoscopic appendectomy by Dr. Tejada and Dr Mullins on March 13 -Elevated lipase- resolved. -Ruled out SBO Patient Condition: Stable Hx of Present Illness Hospital Course The patient is 37-year-old male who developed bowel obstruction and intestinal irritation anomaly and underwent laparoscopic exploration with kocherization of the duodenum as part of the [place]'s procedure by Dr. Tejada on March 13. Patient also underwent appendectomy at that time. Patient recovered well after surgery was able to tolerate regular diet and had a bowel movements. Patient was admitted with epigastric pain and burning sensation accompanied by nausea and vomiting on 11/24/16 . Per patient he was not able to keep any food including liquids since Friday. No reported shortness of breath, chest pain, diarrhea, dark or tarry stool. Patient underwent KUB in the emergency room which revealed nonobstructive gas pattern. Patient noted to have elevated lipase to 380. On 03/26/2017- Dr Benedict in GI treated patient, had EGD performed, result showed pre pyloric ulcers, retained gastric contents, gastric fundal polyps. nd cleared him to discharge home. Constitutional: alert, oriented, well developed Respiratory: clear to auscultation, normal air movement Cardiovascular: nl pulses, regular rate and rhythm Gastrointestinal: other, mild tender, sp sx Musculoskeletal: nl extremities to inspection Extremities: normal pulses Neurological: nl mental status, nl speech Plan of care discussed with Dr. Raymundo. Home Meds Active Scripts Docusate Sodium* (Colace*) 100 Mg Capsule, 100 MG PO DAILY, #30 CAP Prov:STARLA LOW 03/27/17 Ondansetron Hcl* (Zofran*) 4 Mg Tablet, 4 MG PO Q6H for NAUSEA AND/OR VOMITING, #30 TAB Prov:STARLA LOW 03/27/17 Metoclopramide* (Reglan*) 10 Mg Tablet, 10 MG PO AC MEALS Y for NAUSEA AND/OR VOMITING, #30 TAB Prov:SADEORA,STARLA 03/27/17 Pantoprazole* (Protonix*) 40 Mg Tablet.dr, 40 MG PO DAILY, #30 TAB Prov:STARLA LOW 03/27/17 Reported Medications Hydrocodone/Acetaminophen ([place] 5-325 Tablet) 1 Each Tablet, 1 EACH PO DAILY Y for SEVERE PAIN LEVEL 7-10, TAB 03/24/17 Finasteride* (Finasteride*) 1 Mg Tablet, 1 MG PO HS, TAB 03/24/17 Discontinued Reported Medications Vitamin B Complex (Vitamin B Complex) 1 Each Capsule, 1 EACH PO, CAP 03/13/17 Finasteride* (Finasteride*) 1 Mg Tablet, 1 MG PO HS, TAB 03/13/17 Primary Care Provider Rachid Lawson Time spent on discharge: < 30 minutes STARLA LOW Mar 27, 2017 13:04
[2017-03-27 14:00] VITALS: BP 127/80; RESP 18
[2017-03-27] MEDS ORDERED: METOCLOPRAMIDE 10 MG INJ IV ONE (16:30)
== END 2017-03-27 19:07 | disposition home or self-care (01) | DRG 384 ==
LOC: E/R 11:45 → MS1 14:53 → INTOOBSV 14:53 → OBSVTOIN 14:53 → MS1 17:22 → OBSVTOIN 03-26 20:27
PROVIDERS: ADMIT Internal Medicine; ATTEND Internal Medicine
PROC: 0DB68ZX Excision of Stomach, Via Natural or Artificial Opening Endoscopic, Diagnostic (ICD-10-PCS; principal; 2017-03-26 12:30)
DX: K25.9 Gastric ulcer, unspecified as acute or chronic, without hemorrhage or perforation (principal); K31.84 Gastroparesis; K31.7 Polyp of stomach and duodenum; K21.0 Gastro-esophageal reflux disease with esophagitis; K29.70 Gastritis, unspecified, without bleeding; K29.80 Duodenitis without bleeding
CPT/HCPCS: 74000; 74177; 80048; 80053; 83605; 83690; 83735; 84100; 85025; 85610; 85730; 88305; 88312; 99217; G0378; J2270; J2405; J2765; J3480; J7030; Q9967